=== PATIENT | male | born 1945 | race Caucasian/White ===

== ENCOUNTER 2016-10-31 19:23 | Emergency (ER) | payer MEDICARE, OTHER ==
[2016-10-31] MEDS ORDERED: ASPIRIN 81 MG TABLET, CHEWABLE PO ONE (19:47)
[2016-10-31] MEDS ORDERED: ONDANSETRON 4 MG TAB.RAPDIS PO ONE (19:48)
--- NOTE | 2016-10-31 19:48 | ER Document Report ---
ED Medical Screen (RME) - General Stated Complaint: CHEST PAIN Mode of Arrival: Ambulatory Information source: Patient Notes: Patient points to midsternal chest pain started yesterday. Patient does complain of cough, nausea and vomiting. Patient does complain of shortness of breath as well. hx: Hypertension, diabetes, [place] I have greeted and performed a rapid initial assessment of this patient. A comprehensive ED assessment and evaluation of the patient, analysis of test results and completion of the medical decision making process will be conducted by additional ED providers. TRAVEL OUTSIDE OF THE [place] IN LAST 30 DAYS: No - Related Data Allergies/Adverse Reactions: No Known Allergies Allergy (Verified 10/31/16 19:45) Past Medical History - Past Medical History Cardiac Medical History: Reports: Hx Heart Attack - 1983, Hx Hypercholesterolemia, Hx Hypertension - on meds Denies: Hx Coronary Artery Disease Pulmonary Medical History: Denies: Hx Asthma, Hx Bronchitis, Hx COPD, Hx Pneumonia, Hx Tuberculosis Neurological Medical History: Denies: Hx Cerebrovascular Accident, Hx Seizures Endocrine Medical History: Reports: Hx Diabetes Mellitus Type 2 Musculoskeltal Medical History: Reports Hx Arthritis Psychiatric Medical History: Denies: Hx Depression Past Surgical History: Reports: Hx Abdominal Surgery - hernia repair - Immunizations Hx Diphtheria, Pertussis, Tetanus Vaccination: No Physical Exam - Cardiovascular Rhythm: Regular Heart sounds: S1 appreciated, S2 appreciated
[2016-10-31 20:34] LABS: ABSOLUTE LYMPHOCYTES (AUTO) 1.3 10^3/uL (0.5-4.7); ABSOLUTE MONOCYTES (AUTO) 0.9 10^3/uL (0.1-1.4); ABSOLUTE NEUT (AUTO) 12.9 10^3/uL (1.7-8.2); BASOPHILS % (AUTO) 0.3 % (0-2); EOSINOPHILS % (AUTO) 0.1 % (0-6); HEMATOCRIT 45.4 % (37.9-51.0); HEMOGLOBIN 15.6 g/dL (13.5-17.0); HGB HCT DIFFERENCE 1.4; LYMPHOCYTES % (AUTO) 8.5 % (13-45); MEAN CORPUSCULAR HGB CONC 34.5 g/dL (32.0-36.0); MEAN CORPUSCULAR VOLUME 90 fl (80-97); MONOCYTES % (AUTO) 6.1 % (3-13); RED BLOOD COUNT 5.04 10^6/uL (4.35-5.55); RED CELL DISTRIBUTION WIDTH 13.8 % (11.5-14.0); WHITE BLOOD COUNT 15.2 10^3/uL (4.0-10.5)
[2016-10-31 20:50] LABS: ALANINE AMINOTRANSFERASE 34 U/L (21-72); ALKALINE PHOSPHATASE 127 U/L (38-126); ANION GAP 16 (5-19); ASPARTATE AMINO TRANSFERASE 20 U/L (17-59); BILIRUBIN,TOTAL 1.5 mg/dL (0.2-1.3); BLOOD UREA NITROGEN 10 mg/dL (7-20); CARBON DIOXIDE 24 mmol/L (22-30); CHLORIDE 97 mmol/L (98-107); CREATINE KINASE 52 U/L (55-170); CREATININE RESULT 0.67 mg/dL (0.52-1.25); GLUCOSE 132 mg/dL (75-110); MAGNESIUM 1.8 mg/dL (1.6-2.3); POTASSIUM 3.9 mmol/L (3.6-5.0); SODIUM 137.2 mmol/L (137-145); TOTAL PROTEIN 7.9 g/dL (6.3-8.2)
[2016-10-31 21:01] LABS: CREATINE KINASE MB 0.69 ng/mL (<4.55)
[2016-10-31 21:02] LABS: TROPONIN I < 0.012 ng/mL
[2016-10-31] MEDS ORDERED: KETOROLAC TROMETHAMINE INJ/PF 30 MG/1 ML SDV IV ONE (23:32)
[2016-10-31] MEDS ORDERED: NORMAL SALINE 1000 ML 1,000 ML IV ONE (23:32)
[2016-10-31] MEDS ORDERED: MORPHINE SULFATE 10 MG/ML INJ IV PRN (23:32)
--- NOTE | 2016-11-01 00:34 | ER Document Report ---
ED General - General Chief Complaint: Chest Pain Stated Complaint: CHEST PAIN Mode of Arrival: Ambulatory Notes: Patient is a 71-year-old male with past medical history of coronary artery disease, hyperlipidemia, hypertension who presents with 24 hours of persistent vomiting and retrosternal chest discomfort. States that yesterday morning at approximately 3 AM he developed persistent vomiting and has been unable to keep anything down since that time. States roughly one hour after he began vomiting he developed a retrosternal chest discomfort described as a burning, pressure- like sensation. Nothing improves or worsens his pain. States he's been unable to control his vomiting at home and that the main reason he came to the emergency department today. Nothing worsens the symptoms. He does have a history of prior abdominal inguinal hernia repairs and notes that he does have chronic discomfort at the site of his right inguinal repair. He has not seen his primary care physician regarding today's symptoms. States the symptoms do not feel at all like when he had a heart attack approximately 20 years ago. He denies any associated shortness of breath or diaphoresis. No melena, hematochezia, or hemoptysis. No history of DVT or pulmonary embolus. He does not use any anticoagulation. No history of aortic aneurysm or dissection. TRAVEL OUTSIDE OF THE [place] IN LAST 30 DAYS: No - Related Data Allergies/Adverse Reactions: No Known Allergies Allergy (Verified 10/31/16 19:45) Home Medications: Current Home Medications Atorvastatin Calcium 1 tab PO DAILY 11/01/16 [History] Spironolactone [Spironolactone] 1 tab PO DAILY 11/01/16 [History] Past Medical History - General Information source: Patient - Social History Smoking Status: Unknown if Ever Smoked Frequency of alcohol use: None Drug Abuse: None Lives with: Spouse/Significant other Family History: Reviewed & Not Pertinent Patient has suicidal ideation: No Patient has homicidal ideation: No - Past Medical History Cardiac Medical History: Reports: Hx Heart Attack - 1983, Hx Hypercholesterolemia, Hx Hypertension - on meds Denies: Hx Coronary Artery Disease Pulmonary Medical History: Denies: Hx Asthma, Hx Bronchitis, Hx COPD, Hx Pneumonia, Hx Tuberculosis Neurological Medical History: Denies: Hx Cerebrovascular Accident, Hx Seizures Endocrine Medical History: Reports: Hx Diabetes Mellitus Type 2 Renal/ Medical History: Denies: Hx Peritoneal Dialysis Musculoskeltal Medical History: Reports Hx Arthritis Psychiatric Medical History: Denies: Hx Depression Past Surgical History: Reports: Hx Abdominal Surgery - hernia repair, Hx Orthopedic Surgery - ankle, neck - Immunizations Hx Diphtheria, Pertussis, Tetanus Vaccination: Yes Review of Systems - Review of Systems Notes: Constitutional: Negative for fever. HENT: Negative for sore throat. Eyes: Negative for visual changes. Cardiovascular: Positive for chest pain. Respiratory: Negative for shortness of breath. Gastrointestinal: Negative for abdominal pain, positive for vomiting Genitourinary: Negative for dysuria. Musculoskeletal: Negative for back pain. Skin: Negative for rash. Neurological: Negative for headaches, weakness or numbness. 10 point ROS negative except as marked above and in HPI. Physical Exam - Vital signs Vitals: Temp Pulse Resp BP Pulse Ox 97.9 F 93 18 172/71 H 97 10/31/16 19:45 10/31/16 19:45 10/31/16 19:45 10/31/16 19:45 10/31/16 19:45 Interpretation: Hypertensive Notes: PHYSICAL EXAMINATION: GENERAL: Well-appearing, well-nourished and in no acute distress. HEAD: Atraumatic, normocephalic. EYES: Pupils equal round and reactive to light, extraocular movements intact, sclera anicteric, conjunctiva are normal. ENT: nares patent, oropharynx clear without exudates. Moist mucous membranes. NECK: Normal range of motion, supple without lymphadenopathy LUNGS: Breath sounds clear to auscultation bilaterally and equal. No wheezes rales or rhonchi. HEART: Regular rate and rhythm without murmurs ABDOMEN: Soft, nontender, normoactive bowel sounds. No guarding, no rebound. No masses appreciated. EXTREMITIES: Normal range of motion, no pitting or edema. No cyanosis. NEUROLOGICAL: No focal neurological deficits. Moves all extremities spontaneously and on command. PSYCH: Normal mood, normal affect. SKIN: Warm, Dry, normal turgor, no rashes or lesions noted. Course - Re-evaluation Re-evalutation: 11/01/16 00:32 Presentation of chest pain in an otherwise well appearing patient. Low clinical suspicion for ACS given clinical history, exam, EKG without ST elevations or depressions, and negative initial troponin. PE also seems unlikely given clinical history, absence of tachycardia or dyspnea. CXR without evidence of pneumothorax or pneumonia. No widened mediastinum. Aortic dissection also seems unlikely given history, symmetric pulses, CXR, and vitals. My primary concern is the patient's persistent vomiting and absence of any bowel movement or flatus in the past 24 hours. His chest wall pain is reproducible and was started after multiple episodes of vomiting. He does have multiple risk factors for bowel obstruction including prior hernia repair and a prior history of a bowel obstruction. Will obtain a CT abdomen and pelvis. Will also obtain a second troponin marker although again I do not suspect an acute cardiac etiology of patient's presentation. 11/01/16 02:08 The second troponin has remained negative. The CT scan of the abdomen and pelvis does not show any evidence of an acute obstruction patient is tolerated oral intake at this time without difficulty. States his chest discomfort has completely resolved. He states he overall feels much improved relative to when he arrived. At this time will discharge with return precautions and follow-up recommendations. Verbal discharge instructions given a the bedside and opportunity for questions given. Medication warnings reviewed. Patient is in agreement with this plan and has verbalized understanding of return precautions and the need for primary care follow-up in the next 24-72 hours. - Vital Signs Vital signs: Temp Pulse Resp BP Pulse Ox 98.8 F 93 17 137/63 H 92 11/01/16 02:30 10/31/16 19:45 11/01/16 02:01 11/01/16 02:01 11/01/16 02:01 - Laboratory Result Diagrams: 10/31/16 20:20 10/31/16 20:20 Laboratory results interpreted by me: 10/31/16 10/31/16 20:20 20:20 WBC 15.2 H Seg Neutrophils % 85.0 H Lymphocytes % 8.5 L Absolute Neutrophils 12.9 H Chloride 97 L Glucose 132 H Total Bilirubin 1.5 H Alkaline Phosphatase 127 H Creatine Kinase 52 L - Diagnostic Test Radiology reviewed: Reports reviewed - EKG Interpretation by Me Additional EKG results interpreted by me: 11/01/16 02:08 Normal sinus rhythm. Rate 88. No ST elevations or depressions. QTC is 407. Unchanged nonspecific T wave changes in the lateral leads. Discharge - Discharge Clinical Impression: Persistent vomiting, Chest discomfort Condition: Good Disposition: HOME, SELF-CARE Additional Instructions: You have been seen in the Emergency Department (ED) today for nausea and vomiting. Your work up today has not shown a clear cause for your symptoms. Based on your cardiac enzyme testing, chest x-ray, and EKG it does not appear that it is from an immediately life-threatening cause at this time. You have been prescribed Zofran; please use as prescribed as needed for your nausea. Follow up with your doctor as soon as possible regarding today's emergent visit and your symptoms of nausea. Please return to emergency department immediately if you have worsening of your chest pain, shortness of breath, vomiting, become unable to exert yourself due to pain or difficulty breathing, you pass out, or have any pain that radiates into your arms, jaw, or back. Please also return if you develop abdominal pain, bloody vomiting, bloody diarrhea, if you are unable to tolerate fluids due to vomiting, or if you develop other symptoms that concern you.
[2016-11-01] MEDS ORDERED: ONDANSETRON HCL INJ/PF 4 MG/2 ML SDV ONE (00:56)
[2016-11-01 02:30] VITALS: BP 137/63
[2016-11-01] MEDS ORDERED: ONDANSETRON ODT 4 MG TAB (6 TAB/DSPK) PO PRN (02:39)
--- NOTE | 2016-11-01 10:42 | EKG REPORT ---
SEVERITY:- ABNORMAL ECG - SINUS RHYTHM NONSPECIFIC T ABNORMALITIES, DIFFUSE LEADS : Confirmed by: Maddison Mao 01-Nov-2016 10:40:48
== END 2016-11-01 02:35 | disposition home or self-care (01) ==
LOC: ER 19:23
DX: R07.9 Chest pain, unspecified (principal); R11.10 Vomiting, unspecified; I25.10 Atherosclerotic heart disease of native coronary artery without angina pectoris; E78.00 Pure hypercholesterolemia, unspecified; I10 Essential (primary) hypertension; E11.9 Type 2 diabetes mellitus without complications; I25.2 Old myocardial infarction
CPT/HCPCS: 93005; 99285; 96361; 96374; 96375; 36415; 82553; 82550; 83735; 85025; 80053; 84484; 71020; 74177; 93010; A9270 ×3; J1885; J2270; J2405; J7030; S0119

== ENCOUNTER 2017-07-16 15:17 | Inpatient (IN) | payer MEDICARE, OTHER ==
[2017-07-16] MEDS ORDERED: NORMAL SALINE 1000 ML 1,000 ML IV ONE ×2 (15:58→18:56)
[2017-07-16] MEDS ORDERED: ONDANSETRON HCL INJ/PF 4 MG/2 ML SDV IV ONE ×2 (15:59→18:56)
--- NOTE | 2017-07-16 16:01 | ER Document Report ---
ED Medical Screen (RME) - General Chief Complaint: Abdominal Pain Stated Complaint: NAUSEA, DIARRHEA Time Seen by Provider: 07/16/17 15:58 Mode of Arrival: Wheelchair Information source: Patient TRAVEL OUTSIDE OF THE [place] IN LAST 30 DAYS: No - HPI Patient complains to provider of: abd pain/diarrhea Onset: Other - pt. seen here earlier this week with d/o C. diff and has been having recurrent abd pain and diarrhea despite treatment. - Related Data Allergies/Adverse Reactions: No Known Allergies Allergy (Verified 07/16/17 15:21) Past Medical History - Social History Chew tobacco use (# tins/day): No Frequency of alcohol use: None Drug Abuse: None - Past Medical History Cardiac Medical History: Reports: Hx Heart Attack - 1983, Hx Hypercholesterolemia, Hx Hypertension - on meds Denies: Hx Coronary Artery Disease Pulmonary Medical History: Denies: Hx Asthma, Hx Bronchitis, Hx COPD, Hx Pneumonia, Hx Tuberculosis Neurological Medical History: Denies: Hx Cerebrovascular Accident, Hx Seizures Endocrine Medical History: Reports: Hx Diabetes Mellitus Type 2 Renal/ Medical History: Denies: Hx Peritoneal Dialysis Musculoskeltal Medical History: Reports Hx Arthritis Psychiatric Medical History: Denies: Hx Depression Past Surgical History: Reports: Hx Abdominal Surgery - hernia repair, Hx Orthopedic Surgery - ankle, neck - Immunizations Hx Diphtheria, Pertussis, Tetanus Vaccination: Yes Physical Exam - Vital signs Vitals: Temp Pulse Resp BP Pulse Ox 98.0 F 103 H 16 154/72 H 95 07/16/17 15:21 07/16/17 15:21 07/16/17 15:21 07/16/17 15:21 07/16/17 15:21 Course - Vital Signs Vital signs: Temp Pulse Resp BP Pulse Ox 98.0 F 103 H 16 154/72 H 95 07/16/17 15:21 07/16/17 15:21 07/16/17 15:21 07/16/17 15:21 07/16/17 15:21
[2017-07-16] MEDS ORDERED: PROMETHAZINE HCL INJ 25 MG/1 ML VIAL IV ONE (16:30)
[2017-07-16 16:36] LABS: HEMATOCRIT 45.6 % (37.9-51.0); HEMOGLOBIN 15.9 g/dL (13.5-17.0); HGB HCT DIFFERENCE 2.1; MEAN CORPUSCULAR HEMOGLOBIN 31.4 pg (27.0-33.4); MEAN CORPUSCULAR HGB CONC 34.9 g/dL (32.0-36.0); MEAN CORPUSCULAR VOLUME 90 fl (80-97); RED BLOOD COUNT 5.06 10^6/uL (4.35-5.55); RED CELL DISTRIBUTION WIDTH 13.9 % (11.5-14.0)
[2017-07-16 16:40] LABS: APPEARANCE,URINE CLEAR; BILIRUBIN,URINE NEGATIVE (NEGATIVE); GLUCOSE, URINE NEGATIVE (NEGATIVE); KETONES,URINE 20 mg/dL (NEGATIVE); LEUKOCYTE ESTERASE,URINE SMALL (NEGATIVE); NITRITE,URINE NEGATIVE (NEGATIVE); PROTEIN,URINE 100 mg/dL (NEGATIVE); URINE SPECIFIC GRAVITY 1.021; UROBILINOGEN,URINE NEGATIVE mg/dL (<2.0)
[2017-07-16 16:47] LABS: ALANINE AMINOTRANSFERASE 46 U/L (21-72); ALBUMIN 3.2 g/dL (3.5-5.0); ALKALINE PHOSPHATASE 123 U/L (38-126); ANION GAP 15 (5-19); ASPARTATE AMINO TRANSFERASE 42 U/L (17-59); BILIRUBIN,DIRECT 0.4 mg/dL (0.0-0.4); BILIRUBIN,TOTAL 0.9 mg/dL (0.2-1.3); BLOOD UREA NITROGEN 7 mg/dL (7-20); CALCIUM 8.3 mg/dL (8.4-10.2); CARBON DIOXIDE 33 mmol/L (22-30); CHLORIDE 89 mmol/L (98-107); CREATININE RESULT 0.87 mg/dL (0.52-1.25); GLUCOSE 146 mg/dL (75-110); POTASSIUM 3.3 mmol/L (3.6-5.0); SODIUM 136.6 mmol/L (137-145); TOTAL PROTEIN 5.7 g/dL (6.3-8.2)
[2017-07-16 16:54] LABS: BAND NEUTROPHILS % (MANUAL) 1 % (3-5); BASOPHILS % (MANUAL) 0 % (0-2); EOSINOPHILS % (MANUAL) 0 % (0-6); LYMPHOCYTES % (MANUAL) 6 % (13-45); TOTAL CELLS COUNTED 100
[2017-07-16 16:56] LABS: OVALOCYTES SLIGHT; POIKILOCYTOSIS SLIGHT; TOXIC GRANULATION SLIGHT
--- NOTE | 2017-07-16 17:56 | RADIOLOGY REPORT (SQ) ---
EXAM DESCRIPTION: ACUTE ABDOMEN SERIES COMPLETED DATE/TIME: 07/16/2017 5:49 pm REASON FOR STUDY: abd pain COMPARISON: None. NUMBER OF VIEWS: Three views. TECHNIQUE: Frontal chest, supine abdomen and upright abdomen radiographic images acquired. LIMITATIONS: None. FINDINGS: CHEST: Lungs clear of infiltrates. FREE AIR: None. No abnormal gas collections. BOWEL GAS PATTERN: Nonobstructive pattern. No dilated loops or air fluid levels. CALCIFICATIONS: No suspicious calcifications. HARDWARE: None in the abdomen. SOFT TISSUES: No gross mass or suggestion of organomegaly. BONES: No acute fracture. No worrisome bone lesions. OTHER: No other significant finding. IMPRESSION: NO RADIOGRAPHIC EVIDENCE FOR ACUTE ABDOMINAL DISEASE. TECHNICAL DOCUMENTATION: JOB ID: [id number] [employer]- All Rights Reserved
[2017-07-16] MEDS ORDERED: METRONIDAZOLE 500 MG/NS RTU 100 ML IV ONE (18:55)
[2017-07-16] MEDS ORDERED: VANCOMYCIN HCL INJ 1000 MG VIAL IV ONE (18:55)
[2017-07-16] MEDS ORDERED: KETOROLAC TROMETHAMINE INJ/PF 30 MG/1 ML SDV IV ONE (18:56)
--- NOTE | 2017-07-16 19:02 | ER Document Report ---
ED General - General Chief Complaint: Abdominal Pain Stated Complaint: NAUSEA, DIARRHEA Time Seen by Provider: 07/16/17 15:58 Mode of Arrival: Wheelchair Notes: 71-year-old male. To the emergency department today chief complaint of worsening abdominal pain. Was seen here a few days ago. Diagnosed with C. difficile. Started on Cipro and Flagyl. Not getting better. Cannot keep anything down. Worsening pain in the abdomen. Still having large amounts of diarrhea. Fever today. Took antibiotics approximately 2 months ago. Thinks he probably took clindamycin for a dental infection. Had 2 rounds of it. TRAVEL OUTSIDE OF THE [place] IN LAST 30 DAYS: No - HPI Onset: Last week - Related Data Allergies/Adverse Reactions: No Known Allergies Allergy (Verified 07/16/17 15:21) Past Medical History - General Information source: Patient - Social History Smoking Status: Former Smoker Chew tobacco use (# tins/day): No Frequency of alcohol use: None Drug Abuse: None Family History: None, Reviewed & Not Pertinent Patient has suicidal ideation: No Patient has homicidal ideation: No - Past Medical History Cardiac Medical History: Reports: Hx Heart Attack - 1983, Hx Hypercholesterolemia, Hx Hypertension - on meds Denies: Hx Coronary Artery Disease Pulmonary Medical History: Denies: Hx Asthma, Hx Bronchitis, Hx COPD, Hx Pneumonia, Hx Tuberculosis Neurological Medical History: Denies: Hx Cerebrovascular Accident, Hx Seizures Endocrine Medical History: Reports: Hx Diabetes Mellitus Type 2 Renal/ Medical History: Denies: Hx Peritoneal Dialysis Musculoskeltal Medical History: Reports Hx Arthritis Psychiatric Medical History: Denies: Hx Depression Past Surgical History: Reports: Hx Abdominal Surgery - hernia repair, Hx Orthopedic Surgery - ankle, neck - Immunizations Hx Diphtheria, Pertussis, Tetanus Vaccination: Yes Review of Systems - Review of Systems Constitutional: No symptoms reported, Fever, Malaise, Weakness EENT: No symptoms reported Cardiovascular: No symptoms reported Respiratory: No symptoms reported Gastrointestinal: No symptoms reported, Abdomen distended, Abdominal pain, Diarrhea, Nausea, Vomiting Genitourinary: No symptoms reported Male Genitourinary: No symptoms reported Musculoskeletal: No symptoms reported Skin: No symptoms reported Hematologic/Lymphatic: No symptoms reported Neurological/Psychological: No symptoms reported Physical Exam - Vital signs Vitals: Temp Pulse Resp BP Pulse Ox 98.0 F 103 H 16 154/72 H 95 07/16/17 15:21 07/16/17 15:21 07/16/17 15:21 07/16/17 15:21 07/16/17 15:21 Interpretation: Normal - General General appearance: Appears well, Alert - HEENT Head: Normocephalic, Atraumatic Eyes: Normal Pupils: PERRL - Respiratory Respiratory status: No respiratory distress Chest status: Nontender Breath sounds: Normal Chest palpation: Normal - Cardiovascular Rhythm: Regular Heart sounds: Normal auscultation Murmur: No - Abdominal Inspection: Normal Distension: Distended Bowel sounds: Normal Tenderness: Nontender, Tender Organomegaly: No organomegaly - Back Back: Normal, Nontender - Extremities General upper extremity: Normal inspection, Nontender, Normal color, Normal ROM , Normal temperature General lower extremity: Normal inspection, Nontender, Normal color, Normal ROM , Normal temperature, Normal weight bearing. No: Glenna's sign - Neurological Neuro grossly intact: Yes Cognition: Normal Orientation: AAOx4 Malissa Coma Scale Eye Opening: Spontaneous Malissa Coma Scale Verbal: Oriented Malissa Coma Scale Motor: Obeys Commands Malissa Coma Scale Total: 15 Speech: Normal Motor strength normal: LUE, RUE, LLE, RLE Sensory: Normal - Psychological Associated symptoms: Normal affect, Normal mood - Skin Skin Temperature: Warm Skin Moisture: Dry Skin Color: Normal Course - Re-evaluation Re-evalutation: 07/16/17 19:01 This is a relatively ill-appearing 71-year-old male with Clostridium difficile colitis with worsening abdominal pain, leukocytosis of 20,000, nausea and cannot keep anything down. Patient will need to be admitted. Will order CT scan and consult with hospitalist at this time. Flagyl and vancomycin ordered IV. Pain medication and nausea medication ordered as well. 07/16/17 19:02 Acute Abdomen Series 07/16/17 15:59 IMPRESSION: NO RADIOGRAPHIC EVIDENCE FOR ACUTE ABDOMINAL DISEASE. 07/16/17 19:17 Consulted hospitalist. Will admit at this time for further treatment due to inability to tolerate p.o. - Vital Signs Vital signs: Temp Pulse Resp BP Pulse Ox 98.0 F 103 H 16 154/72 H 95 07/16/17 15:21 07/16/17 15:21 07/16/17 15:21 07/16/17 15:21 07/16/17 15:21 - Laboratory Result Diagrams: 07/16/17 16:12 07/16/17 16:12 Laboratory results interpreted by me: 07/16/17 07/16/17 07/16/17 16:12 16:12 16:12 WBC 24.0 H Seg Neuts % (Manual) 90 H Band Neutrophils % 1 L Lymphocytes % (Manual) 6 L Abs Neuts (Manual) 21.8 H Sodium 136.6 L Potassium 3.3 L Chloride 89 L Carbon Dioxide 33 H Glucose 146 H Calcium 8.3 L Total Protein 5.7 L Albumin 3.2 L Urine Protein 100 H Urine Ketones 20 H Ur Leukocyte Esterase SMALL H - EKG Interpretation by Me EKG shows normal: Sinus rhythm, [place], Intervals, QRS Complexes, ST-T Waves Discharge - Discharge Clinical Impression: Clostridium difficile colitis Disposition: ADMITTED INPATIENT Admitting Provider: Hospitalist Unit Admitted: Medical Floor Referrals: AYE TAVERA MD [Primary Care Provider] - Follow up as needed
[2017-07-16] MEDS ORDERED: PROMETHAZINE HCL 25 MG TABLET PO PRN (19:18)
[2017-07-16] MEDS ORDERED: ONDANSETRON HCL INJ/PF 4 MG/2 ML SDV IV PRN (19:18)
[2017-07-16] MEDS ORDERED: NORMAL SALINE 1000 ML 1,000 ML IV PRN (19:18)
[2017-07-16] MEDS ORDERED: INSULIN LISPRO 100 UNIT/ML 3 ML VIAL SUBCUT PRN (19:37)
[2017-07-16] MEDS ORDERED: DEXTROSE 40% GEL 15 GM TUBE PO PRN ×2 (19:37)
[2017-07-16] MEDS ORDERED: DEXTROSE 50%-WATER 25 GM/50 ML DISP.SYRIN IV PRN ×2 (19:37)
[2017-07-16] MEDS ORDERED: GLUCAGON,HUMAN RECOMB 1 MG INJ IM PRN (19:37)
[2017-07-16 20:05] LABS: CREATINE KINASE MB 2.25 ng/mL (<4.55)
[2017-07-16 20:09] LABS: TROPONIN I < 0.012 ng/mL
[2017-07-16] MEDS: VANCOMYCIN HCL INJ 500 MG VIAL PO SCH (21:30)
[2017-07-16] MEDS: METRONIDAZOLE 500 MG/NS RTU 100 ML IV SCH (22:13)
[2017-07-16] MEDS ORDERED: MAGNESIUM SULFATE/D5W 1 GM/100 ML RTUPB IV ONE (22:30)
[2017-07-16] MEDS ORDERED: INFLUENZA ADLT QUAD (36MOS+) 2017-18 VAC 0.5 ML SYR IM PRN (23:28)
[2017-07-17] MEDS ORDERED: VANCOMYCIN HCL INJ 500 MG VIAL ONE ×2 (00:59→07:01)
[2017-07-17] MEDS: VANCOMYCIN HCL INJ 500 MG VIAL PO SCH ×5 (01:43→23:57)
--- NOTE | 2017-07-17 01:47 | PDOC H&P ---
History of Present Illness Admission Date/PCP: 07/16/17 19:18 AYE TAVERA MD History of Present Illness: RICARDO ZIMMER is a 71 year old male with a past medical history significant for diabetes and hypertension who presents to the emergency department with inability to tolerate p.o. Patient reports a slightly greater than 2 week history of diarrhea for which she is placed on Cipro by his primary care physician. Patient presented to the emergency department about 3 days ago and was found to have C. difficile colitis. He was started empirically on Flagyl and informed to stop taking Cipro. He has been unable to tolerate p.o. at home and has been having a fever and excess of 10 stools per day. Patient is referred to the hospitalist service for failure of outpatient therapy, C. difficile colitis with sepsis, as well as inability to tolerate p.o. Past Medical History Cardiac Medical History: Reports: Myocardial Infarction - 1983, Hyperlipidema, Hypertension - on meds Denies: Coronary Artery Disease Pulmonary Medical History: Denies: Asthma, Bronchitis, Chronic Obstructive Pulmonary Disease (COPD), Pneumonia, Tuberculosis Neurological Medical History: Denies: Seizures Endocrine Medical History: Reports: Diabetes Mellitus Type 2 Musculoskeltal Medical History: Reports: Arthritis Psychiatric Medical History: Denies: Depression Hematology: Denies: Anemia Infectious Medical History: Reports: Clostridium Difficile Past Surgical History Past Surgical History: Reports: Herniorrhaphy, Orthopedic Surgery - ankle, neck Social History Smoking Status: Former Smoker Frequency of Alcohol Use: None Hx Recreational Drug Use: No Hx Prescription Drug Abuse: No - Advance Directive Resuscitation Status: Full Code Surrogate healthcare decision maker:: Janet Zimmer, Family History Family History: Malignancy, Other - Alcoholism Parental Family History Reviewed: Yes Children Family History Reviewed: Yes Sibling(s) Family History Reviewed.: Yes Medication/Allergy Home Medications: Amlodipine Besylate [Norvasc 10 mg Tablet] 10 mg PO DAILY 07/16/17 Atorvastatin Calcium [Lipitor 80 mg Tablet] 40 mg PO QHS 07/16/17 Enalapril Maleate [Vasotec 20 mg Tablet] 20 mg PO Q12 07/16/17 Metformin HCl [Metformin HCl ER] 50 mg PO DAILY 07/16/17 Allergies/Adverse Reactions: No Known Allergies Allergy (Verified 07/16/17 15:21) Review of Systems Constitutional: PRESENT: anorexia, chills, fatigue, fever(s), night sweats, weight loss. ABSENT: headache(s), weight gain Eyes: ABSENT: visual disturbances Ears: ABSENT: hearing changes Cardiovascular: ABSENT: chest pain, dyspnea on exertion, edema, orthropnea, palpitations Respiratory: ABSENT: cough, dyspnea, hemoptysis, sputum Gastrointestinal: PRESENT: abdominal pain, diarrhea, nausea, vomiting. ABSENT: constipation, hematemesis, hematochezia, melena Genitourinary: PRESENT: difficulty urinating. ABSENT: dysuria, hematuria Musculoskeletal: ABSENT: joint swelling Integumentary: ABSENT: rash, wounds Neurological: ABSENT: abnormal gait, abnormal speech, confusion, dizziness, focal weakness, syncope Psychiatric: ABSENT: anxiety, depression, homidical ideation, suicidal ideation Endocrine: ABSENT: cold intolerance, heat intolerance, polydipsia, polyuria Hematologic/Lymphatic: ABSENT: easy bleeding, easy bruising Physical Exam Vital Signs: Temp Pulse Resp BP Pulse Ox 98.5 F 94 18 136/67 H 93 07/16/17 21:47 07/16/17 21:47 07/16/17 21:47 07/16/17 21:47 07/16/17 21:47 Intake & Output 07/15/17 07/16/17 07/17/17 06:59 06:59 06:59 Weight 81.2 kg General appearance: PRESENT: mild distress, well-developed, well-nourished, other - Ill-appearing Head exam: PRESENT: atraumatic, normocephalic Eye exam: PRESENT: conjunctival injection, conjunctiva pink, EOMI, PERRLA. ABSENT: scleral icterus Ear exam: PRESENT: normal external ear exam Mouth exam: PRESENT: dry mucosa, tongue midline Neck exam: ABSENT: JVD, lymphadenopathy, thyromegaly, tracheal deviation Respiratory exam: PRESENT: clear to auscultation gera, symmetrical, unlabored. ABSENT: accessory muscle use, crackles, prolonged expiratory phas, rales, rhonchi, tachypnea, wheezes Cardiovascular exam: PRESENT: RRR, +S1, +S2. ABSENT: diastolic murmur, gallop, rubs, systolic murmur Pulses: PRESENT: normal dorsalis pedis pul Vascular exam: PRESENT: normal capillary refill GI/Abdominal exam: PRESENT: distended, hyperactive bowel sounds, soft, tenderness - Diffuse tenderness to palpation. ABSENT: firm, guarding, mass, organolmegaly, rebound, rigid Rectal exam: PRESENT: deferred Extremities exam: PRESENT: full ROM. ABSENT: calf tenderness, clubbing, pedal edema Neurological exam: PRESENT: alert, awake, oriented to person, oriented to place , oriented to time, oriented to situation, CN II-XII grossly intact. ABSENT: motor sensory deficit Psychiatric exam: PRESENT: appropriate affect, normal mood. ABSENT: homicidal ideation, suicidal ideation Skin exam: PRESENT: dry, intact, warm. ABSENT: cyanosis, rash Results Laboratory Results: 07/16/17 07/16/17 19:19 19:19 Lactic Acid 1.2 Magnesium 1.9 07/16/17 07/16/17 19:19 19:19 Creatine Kinase 121 CK-MB (CK-2) 2.25 Troponin I < 0.012 Impressions: Acute Abdomen Series 07/16/17 15:59 IMPRESSION: NO RADIOGRAPHIC EVIDENCE FOR ACUTE ABDOMINAL DISEASE. Assessment & Plan - Diagnosis (1) Sepsis Qualifiers: Sepsis type: sepsis due to unspecified organism Qualified Code(s): A41.9 - Sepsis, unspecified organism Is this a current diagnosis for this admission?: Yes Plan: Secondary to C. difficile colitis. Maintain map greater than 65. Criteria met on admission. Selected Entries 07/16/17 07/16/17 15:21 15:22 Pulse Rate 103 H O2 Sat by Pulse 91 L Oximetry Oxygen Delivery Room Air Method 07/16/17 16:12 WBC 24.0 H (2) Colitis due to Clostridium difficile Is this a current diagnosis for this admission?: Yes Plan: Place patient on oral Vancocin and IV Flagyl. Patient will need a full 2 weeks of this. Have stopped Cipro. Place patient on Bacid. Will obtain a CT of the abdomen and pelvis once patient is better hydrated to ensure there is no toxic megacolon or any other underlying colitis such as ischemic colitis given his history of coronary artery disease and his other comorbidities. (3) CAD (coronary artery disease) Qualifiers: Coronary Disease-Associated Artery/Lesion type: pe[place]anga artery [place] vs. transplanted heart: pechanga heart Associated angina: without angina Qualified Code(s): I25.10 - Atherosclerotic heart disease of pechanga coronary artery without angina pectoris Is this a current diagnosis for this admission?: Yes Plan: Hold current medications (4) Diabetes mellitus type 2 in nonobese Is this a current diagnosis for this admission?: Yes Plan: This patient on sliding scale and hold metformin (5) HTN (hypertension) Qualifiers: Hypertension type: essential hypertension Qualified Code(s): I10 - Essential (primary) hypertension Is this a current diagnosis for this admission?: Yes Plan: We will resume patient's oral antihypertensives (6) Failure of outpatient therapy Is this a current diagnosis for this admission?: Yes Plan: Patient did not complete outpatient therapy so this is not a full failure. He will be restarted on Flagyl as well as oral Vancocin - Time Time Spent: 50 to 70 Minutes Medications reviewed and adjusted accordingly: Yes Anticipated discharge: Home Within: within 72 hours - Inpatient Certification Based on my medical assessment, after consideration of the patient's comorbidities, presenting symptoms, or acuity I expect that the services needed warrant INPATIENT care.: Yes I certify that my determination is in accordance with my understanding of Medicare's requirements for reasonable and necessary INPATIENT services [42 CFR 412.3e].: Yes Medical Necessity: Failure to Improve With Outpatient Therapy, Need For IV Fluids, Need for Pain Control, Need for IV Antibiotics 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
[2017-07-17] MEDS: METRONIDAZOLE 500 MG/NS RTU 100 ML IV SCH ×2 (03:31→23:57)
[2017-07-17 07:13] LABS: EOSINOPHILS % (AUTO) 0.3 % (0-6)
[2017-07-17 07:25] LABS: ANION GAP 8 (5-19); BLOOD UREA NITROGEN 7 mg/dL (7-20); CALCIUM 7.3 mg/dL (8.4-10.2); CARBON DIOXIDE 30 mmol/L (22-30); CHLORIDE 98 mmol/L (98-107); CREATININE RESULT 0.68 mg/dL (0.52-1.25); GLUCOSE 117 mg/dL (75-110); MAGNESIUM 2.3 mg/dL (1.6-2.3); SODIUM 135.5 mmol/L (137-145)
[2017-07-17 07:28] LABS: MEAN CORPUSCULAR VOLUME 90 fl (80-97); RED BLOOD COUNT 4.42 10^6/uL (4.35-5.55)
[2017-07-17 07:29] LABS: ABSOLUTE BASOPHILS # (AUTO) 0.1 10^3/uL (0.0-0.2); ABSOLUTE EOSINOPHILS # (AUTO) 0.1 10^3/uL (0.0-0.6); ABSOLUTE LYMPHOCYTES (AUTO) 1.3 10^3/uL (0.5-4.7); ABSOLUTE MONOCYTES (AUTO) 1.6 10^3/uL (0.1-1.4); BASOPHILS % (AUTO) 0.3 % (0-2); HEMATOCRIT 39.8 % (37.9-51.0); HEMOGLOBIN 13.8 g/dL (13.5-17.0); HGB HCT DIFFERENCE 1.6; MEAN CORPUSCULAR HEMOGLOBIN 31.3 pg (27.0-33.4); MEAN CORPUSCULAR HGB CONC 34.7 g/dL (32.0-36.0); MONOCYTES % (AUTO) 8.3 % (3-13); RED CELL DISTRIBUTION WIDTH 13.6 % (11.5-14.0); SEGMENTED NEUTROPHILS % (AUTO) 84.1 % (42-78)
[2017-07-17] MEDS ORDERED: POTASSIUM CHLORIDE 10 MEQ TABLET.SA PO SCH (10:00)
[2017-07-17] MEDS: LACTOBACILLUS ACIDOPHILUS 250 MG TAB PO SCH ×2 (10:17→17:31)
[2017-07-17] MEDS: ENOXAPARIN SODIUM INJ 40 MG/0.4 ML DISP.SYRIN SUBCUT SCH (10:17)
[2017-07-17] MEDS ORDERED: PSYLLIUM SEED-SF 5.85 GM PACKET PO ONE ×2 (11:00)
--- NOTE | 2017-07-17 11:45 | EKG REPORT ---
SEVERITY:- DEFECTIVE ECG - RIGHT AND LEFT ARM LEADS REVERSED, PLEASE REPEAT ECG NONSPECIFIC ST-T CHANGES : Confirmed by: Maddison Mao 17-Jul-2017 11:43:42
[2017-07-17] MEDS: ACETAMINOPHEN 325 MG TABLET PO PRN ×2 (13:48→17:32)
--- NOTE | 2017-07-17 15:42 | PDOC PROGRESS REPORT ---
Subjective Progress Note for:: 07/17/17 Subjective:: Patient relates that the diarrhea is a bit better when compared to admission. Physical Exam Vital Signs: Temp Pulse Resp BP Pulse Ox 98.5 F 94 18 136/67 H 93 07/16/17 21:47 07/16/17 21:47 07/16/17 21:47 07/16/17 21:47 07/16/17 21:47 Intake & Output 07/16/17 07/17/17 07/18/17 06:59 06:59 05:59 Intake Total 940 Output Total 200 Balance 740 Weight 81.2 kg General appearance: PRESENT: no acute distress, cooperative, obese Head exam: PRESENT: atraumatic, normocephalic Eye exam: PRESENT: EOMI, PERRLA Mouth exam: PRESENT: moist, neck supple Neck exam: PRESENT: full ROM. ABSENT: JVD, tenderness Respiratory exam: PRESENT: clear to auscultation gera Cardiovascular exam: PRESENT: RRR. ABSENT: diastolic murmur, systolic murmur Vascular exam: PRESENT: normal capillary refill GI/Abdominal exam: PRESENT: distended, hypoactive bowel sounds Rectal exam: PRESENT: deferred Extremities exam: PRESENT: full ROM. ABSENT: pedal edema, tenderness Musculoskeletal exam: PRESENT: ambulatory, full ROM Neurological exam: PRESENT: alert, oriented to person, oriented to place, oriented to time Psychiatric exam: PRESENT: appropriate affect, normal mood Results Laboratory Results: 07/17/17 06:19 07/17/17 06:19 07/16/17 07/16/17 07/17/17 19:19 19:19 06:19 WBC 19.0 H RBC 4.42 Hgb 13.8 D Hct 39.8 MCV 90 MCH 31.3 MCHC 34.7 RDW 13.6 Plt Count 241 Seg Neutrophils % 84.1 H Lymphocytes % 7.0 L Monocytes % 8.3 Eosinophils % 0.3 Basophils % 0.3 Absolute Neutrophils 16.0 H Absolute Lymphocytes 1.3 Absolute Monocytes 1.6 H Absolute Eosinophils 0.1 Absolute Basophils 0.1 Sodium Potassium Chloride Carbon Dioxide Anion Gap BUN Creatinine Est GFR ( Amer) Est GFR (Non-Af Amer) Glucose Lactic Acid 1.2 Calcium Magnesium 1.9 07/17/17 06:19 WBC RBC Hgb Hct MCV MCH MCHC RDW Plt Count Seg Neutrophils % Lymphocytes % Monocytes % Eosinophils % Basophils % Absolute Neutrophils Absolute Lymphocytes Absolute Monocytes Absolute Eosinophils Absolute Basophils Sodium 135.5 L Potassium 3.0 L* Chloride 98 Carbon Dioxide 30 Anion Gap 8 BUN 7 Creatinine 0.68 Est GFR ( Amer) > 60 Est GFR (Non-Af Amer) > 60 Glucose 117 H Lactic Acid Calcium 7.3 L Magnesium 2.3 07/16/17 07/16/17 19:19 19:19 Creatine Kinase 121 CK-MB (CK-2) 2.25 Troponin I < 0.012 Impressions: Acute Abdomen Series 07/16/17 15:59 IMPRESSION: NO RADIOGRAPHIC EVIDENCE FOR ACUTE ABDOMINAL DISEASE. Assessment & Plan - Diagnosis (1) Colitis due to Clostridium difficile Is this a current diagnosis for this admission?: Yes Plan: Discontinue flagyl and continue vancomycin since recurring. CT of abdomen/ pelvis pending. (2) Sepsis Qualifiers: Sepsis type: sepsis due to unspecified organism Qualified Code(s): A41.9 - Sepsis, unspecified organism Is this a current diagnosis for this admission?: Yes Plan: Due to C diff infection (3) Diabetes mellitus type 2 in nonobese Is this a current diagnosis for this admission?: Yes Plan: Continue current tx (4) HTN (hypertension) Qualifiers: Hypertension type: essential hypertension Qualified Code(s): I10 - Essential (primary) hypertension Is this a current diagnosis for this admission?: Yes Plan: Continue with current management - Time Time Spent with patient: 15-24 minutes Medications reviewed and adjusted accordingly: Yes Anticipated discharge: Home Within: within 48 hours - Inpatient Certification Based on my medical assessment, after consideration of the patient's comorbidities, presenting symptoms, or acuity I expect that the services needed warrant INPATIENT care.: Yes I certify that my determination is in accordance with my understanding of Medicare's requirements for reasonable and necessary INPATIENT services [42 CFR 412.3e].: Yes Medical Necessity: Need for Pain Control, Need for IV Antibiotics
--- NOTE | 2017-07-17 15:42 | RADIOLOGY REPORT (SQ) ---
EXAM DESCRIPTION: CT ABD/PELVIS WITH IV ORAL COMPLETED DATE/TIME: 07/17/2017 1:30 pm REASON FOR STUDY: Worsening abdominal pain, concern for toxic megaco COMPARISON: Prior CT abdomen and pelvis exams 01/07/2015, 01/06/2016, 11/01/2016 TECHNIQUE: CT scan of the abdomen and pelvis performed using helical scanning technique with dynamic intravenous contrast injection. Patient drank oral contrast. Images reviewed with lung, soft tissue , and bone windows. Reconstructed coronal and sagittal MPR images reviewed. Delayed images for evalua tion of the urinary system also acquired. All images stored on PACS. All CT scanners at this facility use dose modulation, iterative reconstruction, and/or weight based d osing when appropriate to reduce radiation dose to as low as reasonably achievable (ALARA). [facility]: Dose Right [facility]: CareDose [facility]: Dose Right [facility]: Teradose 4D [facility]: SEVENROOMS CONTRAST TYPE AND DOSE: contrast/concentration: Isovue 370.00 mg/ml; Total Contrast Delivered: 87.0 ml; Total Saline Delivered: 66.0 ml RENAL FUNCTION: Creatinine 0.68 RADIATION DOSE: Up-to-date CT equipment and radiation dose reduction techniques were employed. CTDIv ol: 11.7 - 17.0 mGy. DLP: 1566 mGy-cm.. LIMITATIONS: None. FINDINGS: There is diffuse colon wall thickening and luminal narrowing worrisome for diffuse colit is, C difficile or toxic megacolon should be considered. There is a small amount of free intraperitoneal fluid along the splenic flexure of colon and in the r ight lower quadrant. No free intraperitoneal air. Oral contrast is seen throughout the remainder of the gastrointestinal tract in a nonobstructive nigel marnie. LOWER CHEST: Trace bilateral pleural effusions. Small hiatal hernia. Right basilar atelectasis LIVER: Normal size. No masses. Benign 3 cm right posterior hepatic cyst. No dilated ducts. SPLEEN: Normal size. No focal lesions. PANCREAS: No masses. No significant calcifications. No adjacent inflammation or peripancreatic fluid collections. Pancreatic duct not dilated. GALLBLADDER: No identified stones by CT criteria. No inflammatory changes to suggest cholecystitis. ADRENAL GLANDS: No significant masses or asymmetry. RIGHT KIDNEY AND URETER: No solid masses. 1.7 cm right mid pole, 1 cm right lower pole renal cortica l cysts. No significant calcifications. No hydronephrosis or hydroureter. LEFT KIDNEY AND URETER: No solid masses. Left midpole cortical thinning with dystrophic calcificatio ns. No significant calcifications. No hydronephrosis or hydroureter. AORTA AND VESSELS: No aneurysm. No dissection. Renal arteries, SMA, celiac without stenosis. RETROPERITONEUM: No retroperitoneal adenopathy, hemorrhage or masses. BOWEL AND PERITONEAL CAVITY: As above APPENDIX: Normal. PELVIS: No mass. Small amount of right lower quadrant free fluid. Normal bladder. ABDOMINAL WALL: No masses. Fat containing right inguinal hernias. BONES: No significant or acute findings. OTHER: No other significant finding. IMPRESSION: Diffuse colon wall thickening and luminal narrowing with surrounding inflammatory change in the pericolic fat. Trace splenic flexure and right lower quadrant region free fluid. Findings w orrisome for toxic megacolon or C difficile. Inflammatory bowel disease could mimic this appearance. Ischemic colitis is considered unlikely, mesenteric vessels enhance normally. TECHNICAL DOCUMENTATION: JOB ID: [id number] Quality ID # [id number]: Final reports with documentation of one or more dose reduction techniques (e.g., Au tomated exposure control, adjustment of the mA and/or kV according to patient size, use of iterative reconstruction technique) 2010 [employer]- All Rights Reserved
[2017-07-17] MEDS ORDERED: PSYLLIUM SEED-SF 5.85 GM PACKET PO SCH ×2 (18:00)
[2017-07-17] MEDS ORDERED: DEXTROSE 40% GEL 15 GM TUBE PO PRN ×2 (18:12)
[2017-07-17] MEDS ORDERED: DEXTROSE 50%-WATER 25 GM/50 ML DISP.SYRIN IV PRN ×2 (18:12)
[2017-07-17] MEDS ORDERED: GLUCAGON,HUMAN RECOMB 1 MG INJ SUBCUT PRN (18:12)
[2017-07-17] MEDS: POTASSI CL 40 MEQ/D5-1/2NS 1L 40 MEQ/1,000 ML RTUINJ IV PRN (18:28)
[2017-07-18] MEDS: POTASSI CL 40 MEQ/D5-1/2NS 1L 40 MEQ/1,000 ML RTUINJ IV PRN ×3 (02:58→23:03)
[2017-07-18] MEDS: VANCOMYCIN HCL INJ 500 MG VIAL PO SCH ×3 (05:37→17:15)
[2017-07-18] MEDS: METRONIDAZOLE 500 MG/NS RTU 100 ML IV SCH ×3 (05:37→17:16)
[2017-07-18 05:54] LABS: ABSOLUTE BASOPHILS # (AUTO) 0.1 10^3/uL (0.0-0.2); ABSOLUTE EOSINOPHILS # (AUTO) 0.1 10^3/uL (0.0-0.6); ABSOLUTE LYMPHOCYTES (AUTO) 1.2 10^3/uL (0.5-4.7); ABSOLUTE MONOCYTES (AUTO) 1.2 10^3/uL (0.1-1.4); ABSOLUTE NEUT (AUTO) 10.3 10^3/uL (1.7-8.2); BASOPHILS % (AUTO) 0.4 % (0-2); EOSINOPHILS % (AUTO) 0.9 % (0-6); HEMATOCRIT 39.1 % (37.9-51.0); HEMOGLOBIN 13.6 g/dL (13.5-17.0); HGB HCT DIFFERENCE 1.7; LYMPHOCYTES % (AUTO) 9.1 % (13-45); MEAN CORPUSCULAR HEMOGLOBIN 31.1 pg (27.0-33.4); MEAN CORPUSCULAR HGB CONC 34.7 g/dL (32.0-36.0); MEAN CORPUSCULAR VOLUME 90 fl (80-97); MONOCYTES % (AUTO) 9.1 % (3-13); RED BLOOD COUNT 4.37 10^6/uL (4.35-5.55); RED CELL DISTRIBUTION WIDTH 13.6 % (11.5-14.0); SEGMENTED NEUTROPHILS % (AUTO) 80.5 % (42-78); WHITE BLOOD COUNT 12.8 10^3/uL (4.0-10.5)
[2017-07-18 06:27] LABS: ANION GAP 7 (5-19); BLOOD UREA NITROGEN 3 mg/dL (7-20); CALCIUM 7.3 mg/dL (8.4-10.2); CARBON DIOXIDE 30 mmol/L (22-30); CHLORIDE 101 mmol/L (98-107); CREATININE RESULT 0.59 mg/dL (0.52-1.25); GLUCOSE 123 mg/dL (75-110); MAGNESIUM 2.2 mg/dL (1.6-2.3); POTASSIUM 3.5 mmol/L (3.6-5.0); SODIUM 137.8 mmol/L (137-145)
[2017-07-18] MEDS: ENOXAPARIN SODIUM INJ 40 MG/0.4 ML DISP.SYRIN SUBCUT SCH (10:08)
[2017-07-18] MEDS: LACTOBACILLUS ACIDOPHILUS 250 MG TAB PO SCH ×2 (10:08→17:15)
[2017-07-18] MEDS: POTASSIUM CHLORIDE 20 MEQ/15 ML UDCUP PO SCH (10:08)
--- NOTE | 2017-07-18 16:28 | PDOC PROGRESS REPORT ---
Subjective Progress Note for:: 07/18/17 Subjective:: Patient relates that the diarrhea is getting better. Admits having a pudgy belly. Physical Exam Vital Signs: Temp Pulse Resp BP Pulse Ox 98.3 F 71 16 127/57 H 94 07/17/17 23:46 07/17/17 23:46 07/17/17 23:46 07/17/17 23:46 07/17/17 23:46 Intake & Output 07/17/17 07/18/17 07/19/17 07:59 06:59 06:59 Intake Total Output Total Balance Weight General appearance: PRESENT: no acute distress, cooperative, obese Head exam: PRESENT: atraumatic, normocephalic Eye exam: PRESENT: EOMI, PERRLA Ear exam: PRESENT: normal external ear exam Mouth exam: PRESENT: moist, neck supple Neck exam: PRESENT: full ROM. ABSENT: JVD, tenderness Cardiovascular exam: PRESENT: RRR. ABSENT: diastolic murmur, systolic murmur Vascular exam: PRESENT: normal capillary refill GI/Abdominal exam: PRESENT: distended, hypoactive bowel sounds. ABSENT: guarding, tenderness Extremities exam: PRESENT: full ROM, tenderness Neurological exam: PRESENT: alert, oriented to person, oriented to place, oriented to time Psychiatric exam: PRESENT: appropriate affect, normal mood Results Laboratory Results: 07/18/17 04:31 07/18/17 04:31 07/18/17 07/18/17 04:31 04:31 WBC 12.8 H RBC 4.37 Hgb 13.6 Hct 39.1 MCV 90 MCH 31.1 MCHC 34.7 RDW 13.6 Plt Count 255 Seg Neutrophils % 80.5 H Lymphocytes % 9.1 L Monocytes % 9.1 Eosinophils % 0.9 Basophils % 0.4 Absolute Neutrophils 10.3 H Absolute Lymphocytes 1.2 Absolute Monocytes 1.2 Absolute Eosinophils 0.1 Absolute Basophils 0.1 Sodium 137.8 Potassium 3.5 L Chloride 101 Carbon Dioxide 30 Anion Gap 7 BUN 3 L Creatinine 0.59 Est GFR ( Amer) > 60 Est GFR (Non-Af Amer) > 60 Glucose 123 H Calcium 7.3 L Magnesium 2.2 07/16/17 07/16/17 19:19 19:19 Creatine Kinase 121 CK-MB (CK-2) 2.25 Troponin I < 0.012 Impressions: Acute Abdomen Series 07/16/17 15:59 IMPRESSION: NO RADIOGRAPHIC EVIDENCE FOR ACUTE ABDOMINAL DISEASE. Abdomen/Pelvis CT 07/17/17 06:00 IMPRESSION: Diffuse colon wall thickening and luminal narrowing with surrounding inflammatory change in the pericolic fat. Trace splenic flexure and right lower quadrant region free fluid. Findings worrisome for toxic megacolon or C difficile. Inflammatory bowel disease could mimic this appearance. Ischemic colitis is considered unlikely, mesenteric vessels enhance normally. Assessment & Plan - Diagnosis (1) Colitis due to Clostridium difficile Is this a current diagnosis for this admission?: Yes Plan: continue flagyll iv and vancomycin po. Keep NPO except for medications. (2) Sepsis Qualifiers: Sepsis type: sepsis due to unspecified organism Qualified Code(s): A41.9 - Sepsis, unspecified organism Is this a current diagnosis for this admission?: Yes Plan: Due to C diff infection. Improving. (3) Diabetes mellitus type 2 in nonobese Is this a current diagnosis for this admission?: Yes Plan: Continue current tx (4) HTN (hypertension) Qualifiers: Hypertension type: essential hypertension Qualified Code(s): I10 - Essential (primary) hypertension Is this a current diagnosis for this admission?: Yes Plan: Continue with current management (5) Hypokalemia Is this a current diagnosis for this admission?: Yes Plan: Replace po and thru iv. Trend - Time Time Spent with patient: 15-24 minutes Medications reviewed and adjusted accordingly: Yes Anticipated discharge: Home Within: within 72 hours
[2017-07-19] MEDS: VANCOMYCIN HCL INJ 500 MG VIAL PO SCH ×5 (00:14→23:22)
[2017-07-19] MEDS: METRONIDAZOLE 500 MG/NS RTU 100 ML IV SCH ×5 (00:14→23:22)
[2017-07-19 04:39] LABS: ABSOLUTE EOSINOPHILS # (AUTO) 0.1 10^3/uL (0.0-0.6); ABSOLUTE LYMPHOCYTES (AUTO) 1.5 10^3/uL (0.5-4.7); ABSOLUTE MONOCYTES (AUTO) 0.8 10^3/uL (0.1-1.4); ABSOLUTE NEUT (AUTO) 5.6 10^3/uL (1.7-8.2); BASOPHILS % (AUTO) 0.3 % (0-2); EOSINOPHILS % (AUTO) 1.1 % (0-6); HEMATOCRIT 40.3 % (37.9-51.0); HEMOGLOBIN 13.8 g/dL (13.5-17.0); HGB HCT DIFFERENCE 1.1; LYMPHOCYTES % (AUTO) 18.5 % (13-45); MEAN CORPUSCULAR HEMOGLOBIN 31.2 pg (27.0-33.4); MEAN CORPUSCULAR HGB CONC 34.3 g/dL (32.0-36.0); MEAN CORPUSCULAR VOLUME 91 fl (80-97); RED BLOOD COUNT 4.44 10^6/uL (4.35-5.55); RED CELL DISTRIBUTION WIDTH 13.9 % (11.5-14.0); SEGMENTED NEUTROPHILS % (AUTO) 70.1 % (42-78)
[2017-07-19 04:59] LABS: ANION GAP 6 (5-19); BLOOD UREA NITROGEN 3 mg/dL (7-20); CALCIUM 7.3 mg/dL (8.4-10.2); CARBON DIOXIDE 29 mmol/L (22-30); CHLORIDE 103 mmol/L (98-107); CREATININE RESULT 0.58 mg/dL (0.52-1.25); GLUCOSE 118 mg/dL (75-110); SODIUM 137.5 mmol/L (137-145)
[2017-07-19] MEDS: POTASSI CL 40 MEQ/D5-1/2NS 1L 40 MEQ/1,000 ML RTUINJ IV PRN ×2 (09:12→21:27)
[2017-07-19] MEDS: POTASSIUM CHLORIDE 20 MEQ/15 ML UDCUP PO SCH (10:16)
[2017-07-19] MEDS: LACTOBACILLUS ACIDOPHILUS 250 MG TAB PO SCH ×2 (10:16→17:22)
[2017-07-19] MEDS: ENOXAPARIN SODIUM INJ 40 MG/0.4 ML DISP.SYRIN SUBCUT SCH (10:16)
[2017-07-19] MEDS ORDERED: INFLUENZA ADLT QUAD (36MOS+) 2017-18 VAC 0.5 ML SYR IM PRN (12:30)
[2017-07-19] MEDS: ACETAMINOPHEN 325 MG TABLET PO PRN (16:33)
--- NOTE | 2017-07-19 18:57 | PDOC PROGRESS REPORT ---
Subjective Progress Note for:: 07/19/17 Subjective:: Patient relates that the diarrhea is better as well of swelling of stomach. Feels hungry. Physical Exam Vital Signs: Temp Pulse Resp BP Pulse Ox 98.0 F 69 18 139/70 H 94 07/19/17 16:21 07/19/17 16:21 07/19/17 16:21 07/19/17 16:21 07/19/17 16:21 Intake & Output 07/18/17 07/19/17 07/20/17 06:59 06:59 06:59 Intake Total 3468 Balance 3468 Weight 81.9 kg General appearance: PRESENT: no acute distress, cooperative, well-developed, well-nourished Eye exam: PRESENT: EOMI, PERRLA Ear exam: PRESENT: normal external ear exam Mouth exam: PRESENT: moist, neck supple Neck exam: PRESENT: full ROM, JVD. ABSENT: tenderness Respiratory exam: PRESENT: clear to auscultation gera Cardiovascular exam: PRESENT: RRR. ABSENT: diastolic murmur, systolic murmur, tachycardia Vascular exam: PRESENT: normal capillary refill GI/Abdominal exam: PRESENT: normal bowel sounds, other - less distended. ABSENT : tenderness Extremities exam: ABSENT: joint swelling, pedal edema, tenderness Musculoskeletal exam: PRESENT: full ROM Neurological exam: PRESENT: alert, oriented to person, oriented to place, oriented to time Results Laboratory Results: 07/19/17 03:51 07/19/17 03:51 07/19/17 07/19/17 03:51 03:51 WBC 8.0 RBC 4.44 Hgb 13.8 Hct 40.3 MCV 91 MCH 31.2 MCHC 34.3 RDW 13.9 Plt Count 250 Seg Neutrophils % 70.1 Lymphocytes % 18.5 Monocytes % 10.0 Eosinophils % 1.1 Basophils % 0.3 Absolute Neutrophils 5.6 Absolute Lymphocytes 1.5 Absolute Monocytes 0.8 Absolute Eosinophils 0.1 Absolute Basophils 0.0 Sodium 137.5 Potassium 4.0 Chloride 103 Carbon Dioxide 29 Anion Gap 6 BUN 3 L Creatinine 0.58 Est GFR ( Amer) > 60 Est GFR (Non-Af Amer) > 60 Glucose 118 H Calcium 7.3 L Magnesium 2.0 07/16/17 20:30 Blood Blood Culture - Final Corynebacterium Species 07/17/17 06:28 Clean Catch Midstream Urine Culture - Final NO GROWTH 2 DAYS 07/16/17 07/16/17 19:19 19:19 Creatine Kinase 121 CK-MB (CK-2) 2.25 Troponin I < 0.012 Impressions: Acute Abdomen Series 07/16/17 15:59 IMPRESSION: NO RADIOGRAPHIC EVIDENCE FOR ACUTE ABDOMINAL DISEASE. Abdomen/Pelvis CT 07/17/17 06:00 IMPRESSION: Diffuse colon wall thickening and luminal narrowing with surrounding inflammatory change in the pericolic fat. Trace splenic flexure and right lower quadrant region free fluid. Findings worrisome for toxic megacolon or C difficile. Inflammatory bowel disease could mimic this appearance. Ischemic colitis is considered unlikely, mesenteric vessels enhance normally. Assessment & Plan - Diagnosis (1) Colitis due to Clostridium difficile Is this a current diagnosis for this admission?: Yes Plan: Continue current regimen and advance diet to clear liquids. (2) Sepsis Qualifiers: Sepsis type: sepsis due to unspecified organism Qualified Code(s): A41.9 - Sepsis, unspecified organism Is this a current diagnosis for this admission?: Yes Plan: Due to C diff infection. Improving.. Blood culture growing contaminant. (3) Diabetes mellitus type 2 in nonobese Is this a current diagnosis for this admission?: Yes Plan: Continue current tx (4) HTN (hypertension) Qualifiers: Hypertension type: essential hypertension Qualified Code(s): I10 - Essential (primary) hypertension Is this a current diagnosis for this admission?: Yes Plan: Continue with current management (5) Hypokalemia Is this a current diagnosis for this admission?: Yes Plan: Replace po and thru iv. Trend - Time Time Spent with patient: 15-24 minutes Medications reviewed and adjusted accordingly: Yes Anticipated discharge: Home - Inpatient Certification Based on my medical assessment, after consideration of the patient's comorbidities, presenting symptoms, or acuity I expect that the services needed warrant INPATIENT care.: Yes I certify that my determination is in accordance with my understanding of Medicare's requirements for reasonable and necessary INPATIENT services [42 CFR 412.3e].: Yes Medical Necessity: Need For IV Fluids, Need for Pain Control, Need for IV Antibiotics
[2017-07-20] MEDS: ACETAMINOPHEN 325 MG TABLET PO PRN (04:35)
[2017-07-20] MEDS: VANCOMYCIN HCL INJ 500 MG VIAL PO SCH ×4 (05:17→23:12)
[2017-07-20] MEDS: METRONIDAZOLE 500 MG/NS RTU 100 ML IV SCH (05:17)
[2017-07-20] MEDS: POTASSI CL 40 MEQ/D5-1/2NS 1L 40 MEQ/1,000 ML RTUINJ IV PRN (08:13)
[2017-07-20] MEDS: ENOXAPARIN SODIUM INJ 40 MG/0.4 ML DISP.SYRIN SUBCUT SCH (11:40)
[2017-07-20] MEDS: POTASSIUM CHLORIDE 20 MEQ/15 ML UDCUP PO SCH (11:41)
[2017-07-20] MEDS: LACTOBACILLUS ACIDOPHILUS 250 MG TAB PO SCH ×2 (11:41→17:24)
[2017-07-20] MEDS: RIFAXIMIN 550 MG TABLET PO SCH ×2 (11:41→17:24)
--- NOTE | 2017-07-20 12:01 | RADIOLOGY REPORT (SQ) ---
EXAM DESCRIPTION: CT ABD/PELVIS WITH IV ORAL COMPLETED DATE/TIME: 07/20/2017 11:19 am REASON FOR STUDY: follow up colitis COMPARISON: CT abdomen and pelvis 01/07/2015, 11/01/2016, 09/16/2016 CT pelvis 01/06/2016 TECHNIQUE: CT scan of the abdomen and pelvis performed using helical scanning technique with dynamic intravenous contrast injection. Patient drank oral contrast. Images reviewed with lung, soft tissue , and bone windows. Reconstructed coronal and sagittal MPR images reviewed. Delayed images for evalua tion of the urinary system also acquired. All images stored on PACS. All CT scanners at this facility use dose modulation, iterative reconstruction, and/or weight based d osing when appropriate to reduce radiation dose to as low as reasonably achievable (ALARA). [facility]: Dose Right [facility]: CareDose [facility]: Dose Right [facility]: Teradose 4D [facility]: [facility] CONTRAST TYPE AND DOSE: contrast/concentration: Isovue 370.00 mg/ml; Total Contrast Delivered: 86.0 ml; Total Saline Delivered: 69.0 ml RENAL FUNCTION: Creatinine 0.58 RADIATION DOSE: Up-to-date CT equipment and radiation dose reduction techniques were employed. CTDIv ol: 8.0 - 9.2 mGy. DLP: 998 mGy-cm.. LIMITATIONS: None FINDINGS: LOWER CHEST: Trace right pleural effusion with minimal right basilar atelectasis, similar compared to 07/17/2017. LIVER: Normal size. No masses. Benign 3 cm cyst posterior right lobe liver. No dilated ducts. SPLEEN: Normal size. No focal lesions. PANCREAS: No masses. No significant calcifications. No adjacent inflammation or peripancreatic fluid collections. Pancreatic duct not dilated. GALLBLADDER: No identified stones by CT criteria. No inflammatory changes to suggest cholecystitis. ADRENAL GLANDS: No significant masses or asymmetry. RIGHT KIDNEY AND URETER: No solid masses. 1.7 cm cyst right mid-pole kidney, 1 cm cyst right lower p ole kidney. No significant calcifications. No hydronephrosis or hydroureter. LEFT KIDNEY AND URETER: No solid masses. No significant calcifications. No hydronephrosis or hydr oureter. AORTA AND VESSELS: No aneurysm. No dissection. Renal arteries, SMA, celiac without stenosis. RETROPERITONEUM: No retroperitoneal adenopathy, hemorrhage or masses. BOWEL AND PERITONEAL CAVITY: Patient drank oral contrast. There is no CT evidence of bowel obstructi on. Diffuse colon wall thickening, luminal narrowing, and mild inflammatory change in the pericolic fat is present, similar compared to 07/17/2017 from pancolitis. APPENDIX: Normal. PELVIS: No mass. Trace free fluid. Normal bladder. ABDOMINAL WALL: Prior right inguinal hernia repair BONES: No significant or acute findings. OTHER: No other significant finding. IMPRESSION: Persistent findings of colitis. Findings are similar compared to 07/17/2017. TECHNICAL DOCUMENTATION: JOB ID: [id number] Quality ID # [id number]: Final reports with documentation of one or more dose reduction techniques (e.g., Au tomated exposure control, adjustment of the mA and/or kV according to patient size, use of iterative reconstruction technique) 2010 [employer]- All Rights Reserved
[2017-07-20] MEDS ORDERED: POTASSI CL 40 MEQ/D5-1/2NS 1L 40 MEQ/1,000 ML RTUINJ IV PRN (15:37)
--- NOTE | 2017-07-20 18:01 | PDOC PROGRESS REPORT ---
Subjective Progress Note for:: 07/20/17 Subjective:: Patient relates that gets some diarrhea splashes off/on. Able to tolerate the clear liquids but feels full. Complains of swelling of hands ROS All organ systems evaluated and negative except in subjective All laboratories and significant laboratories reviewed Physical Exam Vital Signs: Temp Pulse Resp BP Pulse Ox 97.5 F 64 14 137/68 H 96 07/20/17 00:38 07/20/17 00:38 07/20/17 00:38 07/20/17 00:38 07/20/17 00:38 Intake & Output 07/19/17 07/20/17 07/21/17 06:59 06:59 06:59 Intake Total 3468 3160 Balance 3468 3160 Weight 81.9 kg 80.7 kg General appearance: PRESENT: no acute distress, cooperative Head exam: PRESENT: atraumatic, normocephalic Eye exam: PRESENT: EOMI, PERRLA Ear exam: PRESENT: normal external ear exam Mouth exam: PRESENT: moist, neck supple Neck exam: PRESENT: full ROM, tenderness. ABSENT: JVD Respiratory exam: PRESENT: clear to auscultation gera Cardiovascular exam: PRESENT: RRR. ABSENT: diastolic murmur, systolic murmur Vascular exam: PRESENT: normal capillary refill GI/Abdominal exam: PRESENT: distended, normal bowel sounds. ABSENT: tenderness Neurological exam: PRESENT: alert, oriented to person, oriented to place, oriented to time Results Laboratory Results: 07/19/17 03:51 07/19/17 03:51 07/16/17 20:30 Blood Blood Culture - Final Corynebacterium Species 07/17/17 06:28 Clean Catch Midstream Urine Culture - Final NO GROWTH 2 DAYS 07/16/17 07/16/17 19:19 19:19 Creatine Kinase 121 CK-MB (CK-2) 2.25 Troponin I < 0.012 Impressions: Acute Abdomen Series 07/16/17 15:59 IMPRESSION: NO RADIOGRAPHIC EVIDENCE FOR ACUTE ABDOMINAL DISEASE. Abdomen/Pelvis CT 07/17/17 06:00 IMPRESSION: Diffuse colon wall thickening and luminal narrowing with surrounding inflammatory change in the pericolic fat. Trace splenic flexure and right lower quadrant region free fluid. Findings worrisome for toxic megacolon or C difficile. Inflammatory bowel disease could mimic this appearance. Ischemic colitis is considered unlikely, mesenteric vessels enhance normally. Assessment & Plan - Diagnosis (1) Colitis due to Clostridium difficile Is this a current diagnosis for this admission?: Yes Plan: Repeat CT of abdomen/pelvis since would like to advance diet. Continue vancomycin and rifaximin (2) Sepsis Qualifiers: Sepsis type: sepsis due to unspecified organism Qualified Code(s): A41.9 - Sepsis, unspecified organism Is this a current diagnosis for this admission?: Yes Plan: Due to C diff infection. Improving.. Blood culture growing contaminant. (3) Diabetes mellitus type 2 in nonobese Is this a current diagnosis for this admission?: Yes Plan: Continue current tx (4) HTN (hypertension) Qualifiers: Hypertension type: essential hypertension Qualified Code(s): I10 - Essential (primary) hypertension Is this a current diagnosis for this admission?: Yes Plan: Continue with current management (5) Hypokalemia Is this a current diagnosis for this admission?: Yes Plan: Replace po and decrease ivf's - Time Time Spent with patient: 15-24 minutes Medications reviewed and adjusted accordingly: Yes Anticipated discharge: Home Within: within 72 hours - Inpatient Certification Based on my medical assessment, after consideration of the patient's comorbidities, presenting symptoms, or acuity I expect that the services needed warrant INPATIENT care.: Yes I certify that my determination is in accordance with my understanding of Medicare's requirements for reasonable and necessary INPATIENT services [42 CFR 412.3e].: Yes Medical Necessity: Need For IV Fluids, Need for IV Antibiotics
[2017-07-21 04:58] LABS: ABSOLUTE EOSINOPHILS # (AUTO) 0.1 10^3/uL (0.0-0.6); ABSOLUTE LYMPHOCYTES (AUTO) 2.1 10^3/uL (0.5-4.7); ABSOLUTE MONOCYTES (AUTO) 0.9 10^3/uL (0.1-1.4); ABSOLUTE NEUT (AUTO) 5.8 10^3/uL (1.7-8.2); BASOPHILS % (AUTO) 0.5 % (0-2); EOSINOPHILS % (AUTO) 1.3 % (0-6); HEMATOCRIT 45.8 % (37.9-51.0); HEMOGLOBIN 15.4 g/dL (13.5-17.0); HGB HCT DIFFERENCE 0.4; MEAN CORPUSCULAR HEMOGLOBIN 30.7 pg (27.0-33.4); MEAN CORPUSCULAR HGB CONC 33.6 g/dL (32.0-36.0); MEAN CORPUSCULAR VOLUME 91 fl (80-97); MONOCYTES % (AUTO) 9.8 % (3-13); RED BLOOD COUNT 5.02 10^6/uL (4.35-5.55); RED CELL DISTRIBUTION WIDTH 14.1 % (11.5-14.0); SEGMENTED NEUTROPHILS % (AUTO) 65.4 % (42-78); WHITE BLOOD COUNT 8.9 10^3/uL (4.0-10.5)
[2017-07-21 05:20] LABS: ALANINE AMINOTRANSFERASE 91 U/L (21-72); ALBUMIN 2.8 g/dL (3.5-5.0); ALKALINE PHOSPHATASE 77 U/L (38-126); ANION GAP 7 (5-19); ASPARTATE AMINO TRANSFERASE 94 U/L (17-59); BILIRUBIN,DIRECT 0.5 mg/dL (0.0-0.4); BILIRUBIN,TOTAL 0.7 mg/dL (0.2-1.3); BLOOD UREA NITROGEN 4 mg/dL (7-20); CALCIUM 8.3 mg/dL (8.4-10.2); CARBON DIOXIDE 30 mmol/L (22-30); CHLORIDE 101 mmol/L (98-107); GLUCOSE 117 mg/dL (75-110); MAGNESIUM 2.1 mg/dL (1.6-2.3); POTASSIUM 5.1 mmol/L (3.6-5.0); SODIUM 138.3 mmol/L (137-145)
[2017-07-21] MEDS: VANCOMYCIN HCL INJ 500 MG VIAL PO SCH ×4 (05:43→23:27)
[2017-07-21] MEDS ORDERED: NORMAL SALINE 1000 ML 1,000 ML IV PRN (06:00)
[2017-07-21] MEDS: LACTOBACILLUS ACIDOPHILUS 250 MG TAB PO SCH ×2 (09:11→17:29)
[2017-07-21] MEDS: ENOXAPARIN SODIUM INJ 40 MG/0.4 ML DISP.SYRIN SUBCUT SCH (09:11)
[2017-07-21] MEDS: RIFAXIMIN 550 MG TABLET PO SCH ×2 (09:11→17:29)
[2017-07-21] MEDS: ACETAMINOPHEN 325 MG TABLET PO PRN ×2 (10:50→17:29)
--- NOTE | 2017-07-21 16:12 | PDOC PROGRESS REPORT ---
Subjective Progress Note for:: 07/21/17 Subjective:: Patient relates that hardly having any diarrhea and that is hungry. ROS All organ systems evaluated and negative except in subjective All laboratories and significant laboratories reviewed Physical Exam Vital Signs: Temp Pulse Resp BP Pulse Ox 98.1 F 70 18 116/65 95 07/21/17 00:27 07/21/17 00:27 07/21/17 00:27 07/21/17 00:27 07/21/17 00:27 Intake & Output 07/20/17 07/21/17 07/22/17 06:59 06:59 06:59 Intake Total 3160 3165 Balance 3160 3165 Weight 80.7 kg 78.8 kg General appearance: PRESENT: no acute distress, cooperative Head exam: PRESENT: atraumatic, normocephalic Eye exam: PRESENT: EOMI, PERRLA Ear exam: PRESENT: normal external ear exam Mouth exam: PRESENT: moist, neck supple Neck exam: PRESENT: full ROM. ABSENT: JVD, tenderness Respiratory exam: PRESENT: clear to auscultation gera Cardiovascular exam: PRESENT: RRR. ABSENT: diastolic murmur, gallop, systolic murmur Vascular exam: PRESENT: normal capillary refill GI/Abdominal exam: PRESENT: normal bowel sounds, soft. ABSENT: guarding, tenderness Extremities exam: ABSENT: joint swelling, pedal edema Musculoskeletal exam: PRESENT: ambulatory, full ROM Neurological exam: PRESENT: oriented to person, oriented to place, oriented to time Psychiatric exam: PRESENT: appropriate affect, normal mood Skin exam: PRESENT: intact, normal color Results Laboratory Results: 07/21/17 04:35 07/21/17 04:35 07/21/17 07/21/17 04:35 04:35 WBC 8.9 RBC 5.02 Hgb 15.4 Hct 45.8 MCV 91 MCH 30.7 MCHC 33.6 RDW 14.1 H Plt Count 301 Seg Neutrophils % 65.4 Lymphocytes % 23.0 Monocytes % 9.8 Eosinophils % 1.3 Basophils % 0.5 Absolute Neutrophils 5.8 Absolute Lymphocytes 2.1 Absolute Monocytes 0.9 Absolute Eosinophils 0.1 Absolute Basophils 0.0 Sodium 138.3 Potassium 5.1 H Chloride 101 Carbon Dioxide 30 Anion Gap 7 BUN 4 L Creatinine 0.70 Est GFR ( Amer) > 60 Est GFR (Non-Af Amer) > 60 Glucose 117 H Calcium 8.3 L Magnesium 2.1 Total Bilirubin 0.7 AST 94 H ALT 91 H Alkaline Phosphatase 77 Total Protein 5.0 L Albumin 2.8 L 07/16/17 07/16/17 19:19 19:19 Creatine Kinase 121 CK-MB (CK-2) 2.25 Troponin I < 0.012 Impressions: Acute Abdomen Series 07/16/17 15:59 IMPRESSION: NO RADIOGRAPHIC EVIDENCE FOR ACUTE ABDOMINAL DISEASE. Abdomen/Pelvis CT 07/20/17 00:00 IMPRESSION: Persistent findings of colitis. Findings are similar compared to 07/17/2017. Assessment & Plan - Diagnosis (1) Colitis due to Clostridium difficile Is this a current diagnosis for this admission?: Yes Plan: Continue current management. Advance diet. (2) Sepsis Qualifiers: Sepsis type: sepsis due to unspecified organism Qualified Code(s): A41.9 - Sepsis, unspecified organism Is this a current diagnosis for this admission?: Yes Plan: Due to C diff infection. Improving. Blood culture grew contaminant. (3) Diabetes mellitus type 2 in nonobese Is this a current diagnosis for this admission?: Yes Plan: Continue current tx (4) HTN (hypertension) Qualifiers: Hypertension type: essential hypertension Qualified Code(s): I10 - Essential (primary) hypertension Is this a current diagnosis for this admission?: Yes Plan: Continue with current management (5) Hypokalemia Is this a current diagnosis for this admission?: Yes Plan: Replaced. - Time Time Spent with patient: 15-24 minutes Medications reviewed and adjusted accordingly: Yes Anticipated discharge: Home Within: within 24 hours - Inpatient Certification Based on my medical assessment, after consideration of the patient's comorbidities, presenting symptoms, or acuity I expect that the services needed warrant INPATIENT care.: Yes I certify that my determination is in accordance with my understanding of Medicare's requirements for reasonable and necessary INPATIENT services [42 CFR 412.3e].: Yes Medical Necessity: Risk of Complication if Not Cared For in Hospital
[2017-07-21] MEDS: CALCIUM CARBONATE 500 MG TAB.CHEW PO PRN (19:53)
[2017-07-22 05:19] LABS: ABSOLUTE EOSINOPHILS # (AUTO) 0.1 10^3/uL (0.0-0.6); ABSOLUTE LYMPHOCYTES (AUTO) 1.8 10^3/uL (0.5-4.7); ABSOLUTE MONOCYTES (AUTO) 0.7 10^3/uL (0.1-1.4); ABSOLUTE NEUT (AUTO) 3.8 10^3/uL (1.7-8.2); BASOPHILS % (AUTO) 0.5 % (0-2); EOSINOPHILS % (AUTO) 1.4 % (0-6); HEMATOCRIT 41.9 % (37.9-51.0); HEMOGLOBIN 14.2 g/dL (13.5-17.0); HGB HCT DIFFERENCE 0.7; LYMPHOCYTES % (AUTO) 27.7 % (13-45); MEAN CORPUSCULAR VOLUME 91 fl (80-97); MONOCYTES % (AUTO) 10.6 % (3-13); RED CELL DISTRIBUTION WIDTH 13.7 % (11.5-14.0); SEGMENTED NEUTROPHILS % (AUTO) 59.8 % (42-78); WHITE BLOOD COUNT 6.3 10^3/uL (4.0-10.5)
[2017-07-22] MEDS: VANCOMYCIN HCL INJ 500 MG VIAL PO SCH (05:27)
[2017-07-22 05:39] LABS: ALANINE AMINOTRANSFERASE 100 U/L (21-72); ALBUMIN 2.5 g/dL (3.5-5.0); ALKALINE PHOSPHATASE 92 U/L (38-126); ANION GAP 7 (5-19); ASPARTATE AMINO TRANSFERASE 90 U/L (17-59); BILIRUBIN,DIRECT 0.3 mg/dL (0.0-0.4); BILIRUBIN,TOTAL 0.5 mg/dL (0.2-1.3); BLOOD UREA NITROGEN 8 mg/dL (7-20); CARBON DIOXIDE 28 mmol/L (22-30); CHLORIDE 102 mmol/L (98-107); CREATININE RESULT 0.69 mg/dL (0.52-1.25); GLUCOSE 94 mg/dL (75-110); MAGNESIUM 2.1 mg/dL (1.6-2.3); POTASSIUM 4.3 mmol/L (3.6-5.0); SODIUM 136.7 mmol/L (137-145); TOTAL PROTEIN 4.5 g/dL (6.3-8.2)
[2017-07-22] MEDS: LACTOBACILLUS ACIDOPHILUS 250 MG TAB PO SCH (09:26)
[2017-07-22] MEDS: ENOXAPARIN SODIUM INJ 40 MG/0.4 ML DISP.SYRIN SUBCUT SCH (09:34)
[2017-07-22] MEDS: RIFAXIMIN 550 MG TABLET PO SCH (09:37)
[2017-07-22] MEDS: CALCIUM CARBONATE 500 MG TAB.CHEW PO PRN (09:42)
[2017-07-22 10:19] VITALS: BP 144/64
--- NOTE | 2017-07-22 17:09 | PDOC DISCHARGE SUMMARY ---
General - Admit/Disc Date/PCP Admission Date/Primary Care Provider: 07/16/17 19:18 AYE TAVERA MD Discharge Date: 07/22/17 - Discharge Diagnosis (1) Colitis due to Clostridium difficile Is this a current diagnosis for this admission?: Yes (2) Sepsis Is this a current diagnosis for this admission?: Yes (3) Diabetes mellitus type 2 in nonobese Is this a current diagnosis for this admission?: Yes (4) HTN (hypertension) Is this a current diagnosis for this admission?: Yes (5) Hypokalemia Is this a current diagnosis for this admission?: Yes - Additional Information Resuscitation Status: Full Code Discharge Diet: As Tolerated Discharge Activity: Activity As Tolerated Home Medications: Amlodipine Besylate [Norvasc 10 mg Tablet] 10 mg PO DAILY 07/16/17 Atorvastatin Calcium [Lipitor 80 mg Tablet] 40 mg PO QHS 07/16/17 Enalapril Maleate [Vasotec 20 mg Tablet] 20 mg PO Q12 07/16/17 Metformin HCl [Metformin HCl ER] 50 mg PO DAILY 07/16/17 Vancomycin HCl [Vancocin HCl] 500 mg PO QID 14 Days #112 capsule 07/22/17 History of Present Illness History of Present Illness: RICARDO ZIMMER is a 71 year old male .Presented complaining of abdominal pain and diarrhea. He was diagnosed with C. difficile and further admitted under the hospitalist service. Patient has been receiving Cipro as outpatient for the treatment of colitis Hospital Course Hospital Course: Patient was admitted under the hospitalist service. Initially he was placed on Flagyl IV and vancomycin p.o.. A CT scan was obtained out of concern of the possibility of toxic megacolon. CT scan of the abdomen and pelvis showed extensive inflammation of the colon with concern about the possibility of toxic megacolon. With intervention rendered white blood cell count trended downward and overall patient medical condition began to improve. We discontinue Flagyl IV and he was placed on rifaximin along with vancomycin. Repeated CT of the abdomen and pelvis after 3 days of receiving therapy showed the same findings persisted. Interestingly his medical condition was improving. He had less diarrheal movements and began to feel hungry. We slowly advanced to clear liquids with no further deterioration on overall status. By the time of discharge patient was tolerating a diabetic diet. All electrolyte abnormalities were corrected. He was having occasional diarrhea mostly when urinating. Patient complained on the day of discharge of having hot flashes. I do not think it relates to his presentation however a possibility might be testosterone deficiency. I advised patient to follow-up with his primary care provider since it can be investigated as outpatient. He was encouraged to continue probiotics and add fiber to his diet. He as also advised to avoid lactose products until improved. Patient has been made aware that this infection has a tendency to recur. Since patient had improved and was tolerating oral prompted to discharge under stable condition Physical Exam Vital Signs: Temp Pulse Resp BP Pulse Ox 98.0 F 71 18 139/68 H 95 07/22/17 00:52 07/22/17 00:52 07/22/17 00:52 07/22/17 00:52 07/22/17 00:52 Intake & Output 07/21/17 07/22/17 07/23/17 06:59 06:59 06:59 Intake Total 3165 1060 Balance 3165 1060 Weight 78.8 kg 78.8 kg General appearance: PRESENT: no acute distress, cooperative, well-developed, well-nourished, other Head exam: PRESENT: atraumatic, normocephalic Eye exam: PRESENT: conjunctiva pink, EOMI, PERRLA Ear exam: PRESENT: normal external ear exam Mouth exam: PRESENT: moist, neck supple Neck exam: PRESENT: full ROM. ABSENT: JVD, lymphadenopathy, tenderness Respiratory exam: PRESENT: clear to auscultation gera Cardiovascular exam: PRESENT: RRR. ABSENT: diastolic murmur, systolic murmur Vascular exam: PRESENT: normal capillary refill GI/Abdominal exam: PRESENT: normal bowel sounds, soft. ABSENT: tenderness Extremities exam: ABSENT: joint swelling, pedal edema Musculoskeletal exam: PRESENT: full ROM Neurological exam: PRESENT: alert, oriented to person, oriented to place, oriented to time Psychiatric exam: PRESENT: appropriate affect, normal mood Skin exam: PRESENT: normal color Results Laboratory Results: 07/22/17 03:48 07/22/17 03:48 07/22/17 07/22/17 03:48 03:48 WBC 6.3 RBC 4.60 Hgb 14.2 Hct 41.9 MCV 91 MCH 31.0 MCHC 34.0 RDW 13.7 Plt Count 304 Seg Neutrophils % 59.8 Lymphocytes % 27.7 Monocytes % 10.6 Eosinophils % 1.4 Basophils % 0.5 Absolute Neutrophils 3.8 Absolute Lymphocytes 1.8 Absolute Monocytes 0.7 Absolute Eosinophils 0.1 Absolute Basophils 0.0 Sodium 136.7 L Potassium 4.3 Chloride 102 Carbon Dioxide 28 Anion Gap 7 BUN 8 Creatinine 0.69 Est GFR ( Amer) > 60 Est GFR (Non-Af Amer) > 60 Glucose 94 Calcium 8.0 L Magnesium 2.1 Total Bilirubin 0.5 AST 90 H ALT 100 H Alkaline Phosphatase 92 Total Protein 4.5 L Albumin 2.5 L 07/16/17 19:19 Blood Blood Culture - Final NO GROWTH IN 5 DAYS 07/16/17 07/16/17 19:19 19:19 Creatine Kinase 121 CK-MB (CK-2) 2.25 Troponin I < 0.012 Impressions: Acute Abdomen Series 07/16/17 15:59 IMPRESSION: NO RADIOGRAPHIC EVIDENCE FOR ACUTE ABDOMINAL DISEASE. Abdomen/Pelvis CT 07/20/17 00:00 IMPRESSION: Persistent findings of colitis. Findings are similar compared to 07/17/2017.
== END 2017-07-22 10:30 | disposition home or self-care (01) | DRG 872 ==
LOC: ER 15:17 → EH 19:18 → UNDOADMIN 20:26 → EH 20:26 → 5 21:46
PROVIDERS: ADMIT Family Medicine; ATTEND Family Medicine
PROC: 3E0234Z Introduction of Serum, Toxoid and Vaccine into Muscle, Percutaneous Approach (ICD-10-PCS; principal; 2017-07-22)
DX: A41.9 Sepsis, unspecified organism (principal); A04.72 Enterocolitis due to Clostridium difficile, not specified as recurrent; E11.9 Type 2 diabetes mellitus without complications; I10 Essential (primary) hypertension; E87.6 Hypokalemia; M19.90 Unspecified osteoarthritis, unspecified site; I25.10 Atherosclerotic heart disease of native coronary artery without angina pectoris; E78.00 Pure hypercholesterolemia, unspecified; I25.2 Old myocardial infarction; Z23 Encounter for immunization; Z79.899 Other long term (current) drug therapy; Z87.891 Personal history of nicotine dependence; Z80.9 Family history of malignant neoplasm, unspecified; Z81.1 Family history of alcohol abuse and dependence
CPT/HCPCS: 36415; 74022; 74177; 80048; 80053; 81001; 82550; 82553; 82962; 83605; 83690; 83735; 84484; 85025; 87040; 87045; 87077; 87086; 87205; 87493; 89055; 90686; 93005; 93010; 96361; 96374; 96375; 99284; 99285; A9270-GY; J1650; J1885; J2405; J2550; J2765; J3370; J3475; J3480; J3490; J7030

== ENCOUNTER 2018-01-20 09:18 | Day surgery (SDC) | payer MEDICARE, OTHER ==
[2018-01-14 10:24] LABS: ABSOLUTE EOSINOPHILS # (AUTO) 0.1 10^3/uL (0.0-0.6); ABSOLUTE LYMPHOCYTES (AUTO) 2.1 10^3/uL (0.5-4.7); ABSOLUTE MONOCYTES (AUTO) 0.4 10^3/uL (0.1-1.4); ABSOLUTE NEUT (AUTO) 2.9 10^3/uL (1.7-8.2); BASOPHILS % (AUTO) 0.5 % (0-2); EOSINOPHILS % (AUTO) 1.5 % (0-6); HEMATOCRIT 44.4 % (37.9-51.0); HEMOGLOBIN 15.4 g/dL (13.5-17.0); LYMPHOCYTES % (AUTO) 38.7 % (13-45); MEAN CORPUSCULAR HEMOGLOBIN 31.2 pg (27.0-33.4); MEAN CORPUSCULAR HGB CONC 34.7 g/dL (32.0-36.0); MEAN CORPUSCULAR VOLUME 90 fl (80-97); MONOCYTES % (AUTO) 6.7 % (3-13); PLATELET COUNT 167 10^3/uL (150-450); RED BLOOD COUNT 4.95 10^6/uL (4.35-5.55); RED CELL DISTRIBUTION WIDTH 13.5 % (11.5-14.0); SEGMENTED NEUTROPHILS % (AUTO) 52.6 % (42-78); TOTAL CELLS COUNTED % (AUTO) 100 %; WHITE BLOOD COUNT 5.5 10^3/uL (4.0-10.5)
[2018-01-14 10:44] LABS: ANION GAP 15 (5-19); BLOOD UREA NITROGEN 11 mg/dL (7-20); CALCIUM 9.5 mg/dL (8.4-10.2); CARBON DIOXIDE 27 mmol/L (22-30); CHLORIDE 104 mmol/L (98-107); GLUCOSE 121 mg/dL (75-110); SODIUM 145.7 mmol/L (137-145)
[2018-01-14 10:48] LABS: POTASSIUM 3.9 mmol/L (3.6-5.0)
--- NOTE | 2018-01-14 21:35 | EKG REPORT ---
SEVERITY:- ABNORMAL ECG - SINUS RHYTHM BORDERLINE LEFT AXIS DEVIATION NONSPECIFIC T ABNORMALITIES, ANT-LAT LEADS : Confirmed by: Maddison Mao 14-Jan-2018 21:34:12
[~2018-01-20 09:18] MED LIST: ACETAMINOPHEN 325 MG TABLET PO PRN; LACTATED RINGERS 1000 ML IV PRN; LIDOCAINE 0.5% INJ-PF (5 MG/ML) 50 ML SDV SUBCUT PRN
[2018-01-20] MEDS ORDERED: PROPOFOL INJ 200 MG/20 ML VIAL IV ONE (10:37)
[2018-01-20] MEDS ORDERED: OXYCODONE-ACETAMINOPHEN 5-325 MG TABLET PO PRN ×2 (10:58)
[2018-01-20] MEDS ORDERED: PROMETHAZINE HCL INJ 25 MG/1 ML VIAL IV PRN ×2 (10:58)
[2018-01-20] MEDS ORDERED: DIPHENHYDRAMINE HCL 50 MG/ML VIAL IV PRN (10:58)
[2018-01-20] MEDS ORDERED: FENTANYL CITRATE INJ/PF 100 MCG/2 ML AMPUL IV PRN ×3 (10:58)
[2018-01-20] MEDS ORDERED: MEPERIDINE HCL/PF INJ 25 MG/1 ML DISP.SYRIN IV PRN (10:58)
[2018-01-20] MEDS ORDERED: GLYCOPYRROLATE INJ 0.4 MG/2 ML VIAL ONE (13:26)
[2018-01-20 13:33] VITALS: BP 140/75
--- NOTE | 2018-01-20 14:26 | Operative Report ---
Nonrecallable Operative Report DATE OF SURGERY: 01/20/18 PREOPERATIVE DIAGNOSIS: Rectal bleeding, Hemoccult positive POSTOPERATIVE DIAGNOSIS: 1. Same as above. 2. Multiple colon polyps. 3. Small internal hemorrhoids. OPERATION: 1. colonoscopy to the cecum. 2. Hot biopsy of multiple colon polyps. 3. Hot snare polypectomy of multiple colon polyps. SURGEON: RONALD BLACKMON ANESTHESIA: LMAC TISSUE REMOVED OR ALTERED: 1. Cecal polyp 2. 2. Descending colon polyp. 3. Hepatic flexure polyp 3. 4. Transverse colon polyp. 5. Polyp at 75 cm x2. 6. Polyp at 55 cm 2. COMPLICATIONS: None apparent ESTIMATED BLOOD LOSS: Minimal PROCEDURE: Drains/implants: None. After informed consent was obtained, the patient was brought into the operating room and laid in the left lateral decubitus position. The endoscope was passed up the rectum, sigmoid colon, descending colon, across the transverse colon, down the ascending colon, and into the cecum. The ileocecal valve and appendiceal orifice were identified. The prep was very good. Scope was withdrawn past the ascending colon, transverse colon, down the descending colon , sigmoid colon, and into the rectum. There were multiple polyps found throughout the colon. Larger polyps were removed via snare polypectomy, smaller polyps were removed via hot biopsy forceps. All polyps were removed in their entirety. No diverticula were noted throughout the procedure. A retroflexion maneuver was performed in the rectum, noting small internal hemorrhoids. Scope was straightened, air was suctioned from the rectum, the scope was removed, and the procedure was concluded. Sponge, instrument, and needle counts were correct 2. Condition: Stable.
== END 2018-01-20 13:10 | disposition home or self-care (01) ==
LOC: OROUT 09:18
PROVIDERS: ATTEND Surgery
DX: K62.5 Hemorrhage of anus and rectum (principal); K64.8 Other hemorrhoids; D12.0 Benign neoplasm of cecum; D12.2 Benign neoplasm of ascending colon; D12.6 Benign neoplasm of colon, unspecified; D12.3 Benign neoplasm of transverse colon; Z80.0 Family history of malignant neoplasm of digestive organs; E11.9 Type 2 diabetes mellitus without complications; I10 Essential (primary) hypertension; E78.00 Pure hypercholesterolemia, unspecified; F17.210 Nicotine dependence, cigarettes, uncomplicated; Z79.84 Long term (current) use of oral hypoglycemic drugs; Z79.899 Other long term (current) drug therapy
CPT/HCPCS: 45384; 45385; 93005; 36415; 82962; 85025; 80048; 88305 ×2; 93010; J2704; 811

== ENCOUNTER 2018-09-04 13:42 | Emergency (ER) | payer MEDICARE, OTHER ==
--- NOTE | 2018-09-04 13:57 | ER Document Report ---
ED Medical Screen (RME) - General Chief Complaint: Fever Stated Complaint: POSSIBLE FEVER/CHILLS Time Seen by Provider: 09/04/18 13:53 Mode of Arrival: Ambulatory Information source: Patient TRAVEL OUTSIDE OF THE [place] IN LAST 30 DAYS: No - HPI Patient complains to provider of: fever, chills, diarrhea Onset: Other - pt with h/o C.diff with c/o fever, chills, and diarrhea for the past 2 days - Related Data Allergies/Adverse Reactions: No Known Allergies Allergy (Verified 09/04/18 13:42) Past Medical History - Past Medical History Cardiac Medical History: Reports: Hx Heart Attack - 1983, Hx Hypercholesterolemia, Hx Hypertension - on meds Denies: Hx Coronary Artery Disease Pulmonary Medical History: Denies: Hx Asthma, Hx Bronchitis, Hx COPD, Hx Pneumonia, Hx Tuberculosis Neurological Medical History: Denies: Hx Cerebrovascular Accident, Hx Seizures Endocrine Medical History: Reports: Hx Diabetes Mellitus Type 2 Renal/ Medical History: Denies: Hx Peritoneal Dialysis Musculoskeltal Medical History: Reports Hx Arthritis Psychiatric Medical History: Denies: Hx Depression Infectious Medical History: Reports: Hx C-Diff Past Surgical History: Reports: Hx Abdominal Surgery - hernia repair, Hx Herniorrhaphy, Hx Orthopedic Surgery - ankle, neck - Immunizations Hx Diphtheria, Pertussis, Tetanus Vaccination: Yes History of Influenza Vaccine for 06/2017 - 11/2017 Season: Yes Influenza Administration Date for 06/2017 - 11/2017 Season: 07/14/17 Doctor's Discharge - Discharge Referrals: AYE TAVERA MD [Primary Care Provider] - Follow up as needed
[2018-09-04 14:31] LABS: ABSOLUTE LYMPHOCYTES (AUTO) 0.8 10^3/uL (0.5-4.7); ABSOLUTE MONOCYTES (AUTO) 0.4 10^3/uL (0.1-1.4); BASOPHILS % (AUTO) 0.3 % (0-2); EOSINOPHILS % (AUTO) 0.1 % (0-6); HEMATOCRIT 46.2 % (37.9-51.0); HEMOGLOBIN 16.1 g/dL (13.5-17.0); LYMPHOCYTES % (AUTO) 8.6 % (13-45); MEAN CORPUSCULAR HEMOGLOBIN 31.9 pg (27.0-33.4); MEAN CORPUSCULAR HGB CONC 34.8 g/dL (32.0-36.0); MEAN CORPUSCULAR VOLUME 92 fl (80-97); PLATELET COUNT 155 10^3/uL (150-450); RED BLOOD COUNT 5.04 10^6/uL (4.35-5.55); RED CELL DISTRIBUTION WIDTH 13.3 % (11.5-14.0); TOTAL CELLS COUNTED % (AUTO) 100 %; WHITE BLOOD COUNT 9.2 10^3/uL (4.0-10.5)
[2018-09-04 14:35] LABS: APPEARANCE,URINE SLIGHTLY-CLOUDY; BILIRUBIN,URINE NEGATIVE (NEGATIVE); COLOR,URINE YELLOW; GLUCOSE, URINE NEGATIVE (NEGATIVE); KETONES,URINE NEGATIVE (NEGATIVE); LEUKOCYTE ESTERASE,URINE NEGATIVE (NEGATIVE); NITRITE,URINE NEGATIVE (NEGATIVE); PROTEIN,URINE 30 mg/dL (NEGATIVE); URINE SPECIFIC GRAVITY 1.028; UROBILINOGEN,URINE NEGATIVE mg/dL (<2.0)
[2018-09-04 14:43] LABS: ALANINE AMINOTRANSFERASE 41 U/L (21-72); ALBUMIN 4.4 g/dL (3.5-5.0); ALKALINE PHOSPHATASE 127 U/L (38-126); ANION GAP 14 (5-19); ASPARTATE AMINO TRANSFERASE 32 U/L (17-59); BILIRUBIN,DIRECT 0.2 mg/dL (0.0-0.4); BILIRUBIN,TOTAL 1.1 mg/dL (0.2-1.3); BLOOD UREA NITROGEN 11 mg/dL (7-20); CALCIUM 9.5 mg/dL (8.4-10.2); CARBON DIOXIDE 24 mmol/L (22-30); CHLORIDE 98 mmol/L (98-107); GLUCOSE 133 mg/dL (75-110); POTASSIUM 3.5 mmol/L (3.6-5.0); SODIUM 136.1 mmol/L (137-145); TOTAL PROTEIN 6.8 g/dL (6.3-8.2)
[2018-09-04] MEDS ORDERED: NORMAL SALINE 500 ML IV ONE (14:48)
[2018-09-04] MEDS ORDERED: ONDANSETRON HCL INJ/PF 4 MG/2 ML SDV IV ONE (14:48)
[2018-09-04 15:07] LABS: A TYPE INFLUENZA AG NEGATIVE (NEGATIVE); B INFLUENZA AG NEGATIVE (NEGATIVE)
--- NOTE | 2018-09-04 15:10 | RADIOLOGY REPORT (SQ) ---
EXAM DESCRIPTION: CHEST 2 VIEWS COMPLETED DATE/TIME: 09/04/2018 2:38 pm REASON FOR STUDY: fever COMPARISON: 10/31/2016 EXAM PARAMETERS: NUMBER OF VIEWS: two views TECHNIQUE: Digital Frontal and Lateral radiographic views of the chest acquired. RADIATION DOSE: NA LIMITATIONS: none FINDINGS: LUNGS AND PLEURA: No opacities, masses or pneumothorax. No pleural effusion. MEDIASTINUM AND HILAR STRUCTURES: No masses or contour abnormalities. HEART AND VASCULAR STRUCTURES: Heart normal size. No evidence for failure. BONES: No acute findings. HARDWARE: None in the chest. OTHER: No other significant finding. IMPRESSION: No acute abnormality of the lungs. No focal airspace opacity. TECHNICAL DOCUMENTATION: JOB ID: [id number]- All Rights Reserved Reading location - IP/workstation name: [email or web address]
--- NOTE | 2018-09-04 15:49 | ER Document Report ---
ED General - General Chief Complaint: Fever Stated Complaint: POSSIBLE FEVER/CHILLS Time Seen by Provider: 09/04/18 13:53 Mode of Arrival: Ambulatory TRAVEL OUTSIDE OF THE [place] IN LAST 30 DAYS: No - HPI Patient complains to provider of: Fevers chills nausea vomiting diarrhea Notes: Patient coming in for evaluation of fever chills nausea vomiting diarrhea ongoing for the last 2 days. Patient states concerned about having C. difficile states approximately this time last year he was diagnosed with that disease process. Patient denies any recent antibiotic use denies any travel out of state or out of country. Patient is unable to give me a T-max states feels feverish at home some chills and feeling cold. Patient is unaware if he received a flu vaccine this year. Patient otherwise looks to be comfortable upon my evaluation - Related Data Allergies/Adverse Reactions: No Known Allergies Allergy (Verified 09/04/18 13:42) Past Medical History - General Information source: Patient - Social History Smoking Status: Former Smoker Frequency of alcohol use: None Drug Abuse: None Family History: Malignancy, Other - Alcoholism Patient has suicidal ideation: No Patient has homicidal ideation: No - Past Medical History Cardiac Medical History: Reports: Hx Heart Attack - 1983, Hx Hypercholesterolemia, Hx Hypertension - on meds Denies: Hx Coronary Artery Disease Pulmonary Medical History: Denies: Hx Asthma, Hx Bronchitis, Hx COPD, Hx Pneumonia, Hx Tuberculosis Neurological Medical History: Denies: Hx Cerebrovascular Accident, Hx Seizures Endocrine Medical History: Reports: Hx Diabetes Mellitus Type 2 Renal/ Medical History: Denies: Hx Peritoneal Dialysis Musculoskeletal Medical History: Reports Hx Arthritis Psychiatric Medical History: Denies: Hx Depression Infectious Medical History: Reports: Hx C-Diff Past Surgical History: Reports: Hx Abdominal Surgery - hernia repair, Hx Herniorrhaphy, Hx Orthopedic Surgery - ankle, neck - Immunizations Hx Diphtheria, Pertussis, Tetanus Vaccination: Yes Review of Systems - Review of Systems Constitutional: Chills, Fever EENT: No symptoms reported Cardiovascular: No symptoms reported Respiratory: No symptoms reported Gastrointestinal: Abdominal pain, Diarrhea, Nausea, Vomiting Genitourinary: No symptoms reported Male Genitourinary: No symptoms reported Musculoskeletal: No symptoms reported Skin: No symptoms reported Hematologic/Lymphatic: No symptoms reported Neurological/Psychological: No symptoms reported -: Yes All other systems reviewed and negative Physical Exam - Vital signs Vitals: Temp Pulse Resp BP Pulse Ox 98.7 F 107 H 16 146/69 H 94 09/04/18 13:48 09/04/18 13:48 09/04/18 13:48 09/04/18 13:48 09/04/18 13:48 Interpretation: Normal - General General appearance: Appears well, Alert - HEENT Head: Normocephalic, Atraumatic Eyes: Normal Pupils: PERRL - Respiratory Respiratory status: No respiratory distress Chest status: Nontender Breath sounds: Normal Chest palpation: Normal - Cardiovascular Rhythm: Regular Heart sounds: Normal auscultation Murmur: No - Abdominal Inspection: Normal Distension: No distension Bowel sounds: Normal Tenderness: Nontender Organomegaly: No organomegaly - Back Back: Normal, Nontender - Extremities General upper extremity: Normal inspection, Nontender, Normal color, Normal ROM, Normal temperature General lower extremity: Normal inspection, Nontender, Normal color, Normal ROM, Normal temperature, Normal weight bearing. No: Glenna's sign - Neurological Neuro grossly intact: Yes Cognition: Normal Orientation: AAOx4 [place] Coma Scale Eye Opening: Spontaneous [place] Coma Scale Verbal: Oriented [place] Coma Scale Motor: Obeys Commands [place] Coma Scale Total: 15 Speech: Normal Motor strength normal: LUE, RUE, LLE, RLE Sensory: Normal - Psychological Associated symptoms: Normal affect, Normal mood - Skin Skin Temperature: Warm Skin Moisture: Dry Skin Color: Normal Course - Re-evaluation Re-evalutation: 09/04/18 22:16 The patient presents with nausea by diarrhea without signs of peritonitis or other life-threatening or serious etiology. The patient appears stable for discharge and has been instructed to return immediately if the symptoms worsen in any way, or in 8-12hr if not improved for re-evaluation. The patient has been instructed to return if the symptoms worsen or change in any way. C. difficile was negative. - Vital Signs Vital signs: Temp Pulse Resp BP Pulse Ox 99.2 F 104 H 18 140/65 H 94 09/04/18 17:54 09/04/18 17:54 09/04/18 17:54 09/04/18 17:54 09/04/18 17:54 - Laboratory Result Diagrams: 09/04/18 14:15 09/04/18 14:15 Laboratory results interpreted by me: 09/04/18 09/04/18 09/04/18 14:10 14:15 14:15 Seg Neutrophils % 87.0 H Lymphocytes % 8.6 L Sodium 136.1 L Potassium 3.5 L Glucose 133 H Alkaline Phosphatase 127 H Urine Protein 30 H Urine Blood SMALL H Discharge - Discharge Clinical Impression: Nausea vomiting and diarrhea Condition: Good Disposition: HOME, SELF-CARE Instructions: Diarrhea, Nonspecific ([facility]), Gastroenteritis (adult) ([facility]), Vomiting ([facility]) Additional Instructions: Your evaluation today does not show any signs of C. difficile infection or any other critical pathology do believe you have underlying viral illness. I recommend clear liquids for the next 12-24 hours and advance as tolerated going to starchy foods such as toast cereal. Return to ER symptoms worsen. Prescriptions: Ondansetron [Zofran Odt 4 mg Tablet] 1 - 2 tab PO Q4H PRN #30 tab.rapdis PRN Reason: For Nausea/Vomiting Referrals: AYE TAVERA MD [Primary Care Provider] - Follow up as needed
[2018-09-04] MEDS ORDERED: ONDANSETRON ODT 4 MG TAB (6 TAB/ER DISP) PO PRN (17:45)
[2018-09-04 17:59] VITALS: BP 140/65
== END 2018-09-04 17:59 | disposition home or self-care (01) ==
LOC: ER 13:42
DX: R11.2 Nausea with vomiting, unspecified (principal); R19.7 Diarrhea, unspecified; R50.9 Fever, unspecified; I25.2 Old myocardial infarction; E78.00 Pure hypercholesterolemia, unspecified; I10 Essential (primary) hypertension; E11.9 Type 2 diabetes mellitus without complications
CPT/HCPCS: 99284; 96361; 96374; 36415; 85025; 80053; 81001; 87493; 87804; 71046; J2405; J7040; A9270